=== PATIENT | male | born 1945 | race Caucasian/White ===

== ENCOUNTER 2017-03-25 13:26 | Emergency (ER) | payer MEDICARE, BC ==
[2017-03-25 13:39] VITALS: BP 151/64
--- NOTE | 2017-03-25 14:00 | EDM.PDOC ---
ED HPI GENERAL MEDICAL PROBLEM - General Chief Complaint: General Time Seen by Provider: 03/25/17 13:40 Source of Information: Reports: Patient History Limitations: Reports: No Limitations - History of Present Illness INITIAL COMMENTS - FREE TEXT/NARRATIVE: According to patient he has been having pain redness and swelling over the lateral aspect of the left ankle for past 1 wk now. The redness has been slowly spreading and painful. No open wound or discharge. Also he is noticing swelling of both lower legs now. No fever or chills. No shortness of breath or wheezing. Also he has stage 2 renal disease and has chronic back pain wants to have BMP done today, to make sure the back pain is not from his kidneys. Duration: Week(s): (1) Location: Reports: Lower Extremity, Right Quality: Reports: Ache Severity: Moderate Improves with: Reports: None Worsens with: Reports: None Associated Symptoms: Denies: Confusion, Chest Pain, Cough, Fever/Chills, Nausea/ Vomiting, Shortness of Breath, Syncope Left Ankle Pain Score (Numeric/FACES): 7 Right Lower Ankle Pain Score (Numeric/FACES): 7 - Related Data Allergies Allergy/AdvReac Type Severity Reaction Status Date / Time No Known Allergies Allergy Verified 07/10/16 12:01 Home Meds: Home Meds Aspirin [Halfprin] 81 mg PO DAILY 07/10/16 [History] Calcium Citrate/Vitamin D3 [Calcium Citrate + D] 1 tab PO DAILY 07/10/16 [ History] Cetirizine [ZyrTEC] 10 mg pe PO DAILY 07/10/16 [History] Doxazosin Mesylate [Cardura] 8 mg PO DAILY 07/10/16 [History] Doxazosin [Cardura] 2 mg PO DAILY 07/10/16 [History] Febuxostat [Uloric] 40 mg PO DAILY 07/10/16 [History] Ferrous Sulfate 325 mg PO DAILY 07/10/16 [History] Furosemide [Lasix] 40 mg PO DAILY 07/10/16 [History] Gabapentin [Neurontin] 100 mg PO DAILY 07/10/16 [History] Methylcellulose (with Sugar) [Citrucel] 454 gm PO DAILY 07/10/16 [History] Omeprazole 20 mg PO DAILY 07/10/16 [History] Sildenafil Citrate [Viagra] 25 mg PO DAILY 07/10/16 [History] Simvastatin [Zocor] 20 mg PO DAILY 07/10/16 [History] Ubidecarenone [Co Q-10] 200 mg PO DAILY 07/10/16 [History] amLODIPine Besylate [Amlodipine Besylate] 10 mg PO DAILY 07/10/16 [History] glipiZIDE [Glucotrol XL] 2.5 mg PO BID 07/10/16 [History] hydrALAZINE [Apresoline] 50 mg PO DAILY 07/10/16 [History] traMADol [Ultram] 50 mg PO TID 07/10/16 [History] Past Medical History HEENT History: Reports: Impaired Vision Cardiovascular History: Reports: Heart Failure, High Cholesterol, Hypertension, CT, Prior Cardiac Arrest, Other (See Below) Other Cardiovascular History: hyperkalemia Genitourinary History: Reports: Renal Disease, Other (See Below) Other Genitourinary History: Blood work has been high and has hx diabetes Musculoskeletal History: Reports: Back Pain, Chronic, Gout Endocrine/Metabolic History: Reports: Diabetes, Type II Hematologic History: Reports: Anemia - Infectious Disease History Infectious Disease History: Reports: Chicken Pox - Past Surgical History Cardiovascular Surgical History: Reports: None, Coronary Artery Bypass, Percutaneous Transluminal Angioplasty Social & Family History - Family History Family Medical History: Noncontributory - Tobacco Use Smoking Status *Q: Unknown Ever Smoked - Caffeine Use Caffeine Use: Reports: None ED ROS GENERAL - Review of Systems Review Of Systems: See Below Constitutional: Denies: Fever, Chills HEENT: Denies: Rhinitis, Throat Pain, Throat Swelling, Vision Change Respiratory: Denies: Cough, Sputum Cardiovascular: Denies: Chest Pain, Lightheadedness, Syncope GI/Abdominal: Denies: Nausea, Vomiting : Denies: Dysuria, Flank Pain Musculoskeletal: Denies: Joint Pain, Joint Swelling Skin: Reports: Erythema Neurological: Denies: Syncope, Tingling ED EXAM, GENERAL - Physical Exam Exam: See Below Exam Limited By: No Limitations General Appearance: Alert, WD/WN, No Apparent Distress Eye Exam: Bilateral Eye: EOMI, PERRL Ears: Normal External Exam, Normal Canal, Hearing Grossly Normal, Normal TMs Ear Exam: Bilateral Ear: Auricle Normal, Canal Normal, TM normal Nose: Normal Inspection, Normal Mucosa, No Blood Throat/Mouth: Normal Inspection, Normal Lips, Normal Teeth, Normal Gums, Normal Oropharynx, Normal Voice, No Airway Compromise Head: Atraumatic, Normocephalic Neck: Normal Inspection, Supple, Non-Tender, Full Range of Motion Respiratory/Chest: No Respiratory Distress, Lungs Clear, Normal Breath Sounds, No Accessory Muscle Use, Chest Non-Tender Cardiovascular: Normal Peripheral Pulses, Regular Rate, Rhythm, No Edema, No Gallop, No JVD, No Murmur, No Rub Peripheral Pulses: 2+: Radial (L), Radial (R) Extremities: Pedal Edema (Pitting type around both ankle), Redness (LAteral aspect of the right ankle. Tender over the rash. There is pitting edema around right ankle.) Course - Vital Signs Text/Narrative:: CBC appears normal. His BMP shows potassium of 3.9. His BUN is 37 and his creat is 2.05. His elevated creat could be from chronic renal insufficiency. I have started him on augmentin for the cellulitis of the right ankle. Advised elevation of the right leg. Warm compresses. Regarding his back pain, he does have chronic back pain and on tramadol. His BMP appears stable.Pt is not sure of his last BMP results and he had it done in [place] and has report at home. I have given copy of the results here to compare. If elevated needs to call us. Otherwise I have advised to take his lasix 40mg BID( around 6 am and 4 PM) Last Recorded V/S: Last Vital Signs Temp 97.8 F 03/25/17 13:38 Pulse 76 03/25/17 13:38 Resp 20 03/25/17 13:38 BP 151/64 H 03/25/17 13:38 Pulse Ox 96 03/25/17 13:38 - Orders/Labs/Meds Labs: Laboratory Tests 03/25/17 03/25/17 Range/Units 13:55 13:55 WBC 7.7 D (4.0-11.0) K/uL RBC 3.24 L (4.50-6.50) M/uL Hgb 10.4 L (13.0-18.0) g/dL Hct 30.7 L (40.0-54.0) % MCV 95 (76-96) fL MCH 32.1 H (27.0-32.0) pg MCHC 33.9 (31.0-35.0) g/dL RDW 14.4 (11.0-16.0) % Plt Count 249 D (150-400) K/uL MPV 8.8 (6.0-10.0) fL Neut % (Auto) 68.6 (45.0-70.0) % Lymph % (Auto) 16.0 L (20.0-40.0) % Randolph % (Auto) 12.6 H (3.0-10.0) % Eos % (Auto) 1.9 (1.0-5.0) % Baso % (Auto) 0.9 H (0.0-0.5) % Neut # (Auto) 5.28 (2.00-7.50) K/uL Lymph # (Auto) 1.23 L (1.50-4.00) K/uL Randolph # (Auto) 0.97 H (0.20-0.80) K/uL Eos # (Auto) 0.15 (0.04-0.40) K/uL Baso # (Auto) 0.07 (0.02-0.10) K/uL Sodium 136 (136-145) mmol/L Potassium 3.9 (3.5-5.1) mmol/L Chloride 101 (98-107) mmol/L Carbon Dioxide 25.2 (21.0-32.0) mmol/L Anion Gap 13.7 (5.0-15.0) mmol/L BUN 37 H D (8-26) mg/dL Creatinine 2.05 H D (0.70-1.30) mg/dL Est Cr Clr Drug Dosing 3.13 mL/min Estimated GFR (MDRD) 32 L (>60) MLS/MIN BUN/Creatinine Ratio 18.0 (6-25) Glucose 139 H D (74-100) mg/dL Calcium 8.7 (8.5-10.1) mg/dL Departure - Departure Time of Disposition: 15:10 Disposition: Home, Self-Care 01 Condition: fair Clinical Impression: Cellulitis of right ankle, Back pain - Discharge Information Instructions: Diabetes and Foot Care, Cellulitis, Adult, Amoxicillin; Clavulanic Acid oral suspension Referrals: Amado Bravo MD [Primary Care Provider] - Forms: ED Department Discharge Care Plan Goals: Take Augmentin twice a day until gone. - Problem List & Annotations (1) Back pain SNOMED Code(s): 223499024 Code(s): M54.9 - DORSALGIA, UNSPECIFIED Status: Acute Current Visit: Yes (2) Cellulitis of right ankle SNOMED Code(s): 33514154 Code(s): L03.115 - CELLULITIS OF RIGHT LOWER LIMB Status: Acute Current Visit: Yes - Assessment/Plan Assessment:: Cellulitis of the right ankle Chronic Back pain. with CRF Plan: CBC appears normal. His BMP shows potassium of 3.9. His BUN is 37 and his creat is 2.05. His elevated creat could be from chronic renal insufficiency. I have started him on augmentin for the cellulitis of the right ankle. Advised elevation of the right leg. Warm compresses. Regarding his back pain, he does have chronic back pain and on tramadol. His BMP appears stable.Pt is not sure of his last BMP results and he had it done in [place] and has report at home. I have given copy of the results here to compare. If elevated needs to call us. Otherwise I have advised to take his lasix 40mg BID( around 6 am and 4 PM)
== END 2017-03-25 14:45 | disposition home or self-care (01) ==
LOC: LB.ED 13:26
DX: L03.115 Cellulitis of right lower limb (principal); M54.9 Dorsalgia, unspecified; I11.0 Hypertensive heart disease with heart failure; I50.9 Heart failure, unspecified; I25.2 Old myocardial infarction; E78.00 Pure hypercholesterolemia, unspecified; E11.9 Type 2 diabetes mellitus without complications; D64.9 Anemia, unspecified; Z95.1 Presence of aortocoronary bypass graft; Z79.82 Long term (current) use of aspirin; Z79.899 Other long term (current) drug therapy; M10.9 Gout, unspecified
CPT/HCPCS: 36415; 80048; 85025; 99283

== ENCOUNTER 2017-05-08 19:18 | Emergency (ER) | payer MEDICARE, BC ==
[2017-05-08 20:23] VITALS: BP 139/66
--- NOTE | 2017-05-11 11:46 | EDM.PDOC ---
ED HPI GENERAL MEDICAL PROBLEM - General Chief Complaint: Laceration Stated Complaint: laceration Time Seen by Provider: 05/08/17 19:30 Source of Information: Reports: Patient History Limitations: Reports: No Limitations - History of Present Illness INITIAL COMMENTS - FREE TEXT/NARRATIVE: This is a 71yo M here for a laceration injury of the right index finger proximally. Patient was moving his trailer awning and it fell and caught his hand. Patient has full range of movement and motion but does take blood thinners but is no longer bleeding. Patient denies any other injuries. Onset: Sudden Location: Reports: Upper Extremity, Right Improves with: Reports: None Worsens with: Reports: None - Related Data Allergies Allergy/AdvReac Type Severity Reaction Status Date / Time No Known Allergies Allergy Verified 05/08/17 20:42 Home Meds: Home Meds Aspirin [Halfprin] 81 mg PO DAILY 07/10/16 [History] Calcium Citrate/Vitamin D3 [Calcium Citrate + D] 1 tab PO DAILY 07/10/16 [ History] Cetirizine [ZyrTEC] 10 mg pe PO DAILY 07/10/16 [History] Doxazosin Mesylate [Cardura] 8 mg PO DAILY 07/10/16 [History] Febuxostat [Uloric] 80 mg PO DAILY 07/10/16 [History] Furosemide [Lasix] 80 mg PO DAILY 07/10/16 [History] Gabapentin [Neurontin] 100 mg PO DAILY 07/10/16 [History] Omeprazole 20 mg PO DAILY 07/10/16 [History] Sildenafil Citrate [Viagra] 25 mg PO DAILY 07/10/16 [History] Simvastatin [Zocor] 20 mg PO DAILY 07/10/16 [History] Ubidecarenone [Co Q-10] 200 mg PO DAILY 07/10/16 [History] amLODIPine Besylate [Amlodipine Besylate] 10 mg PO DAILY 07/10/16 [History] glipiZIDE [Glucotrol XL] 2.5 mg PO DAILY 07/10/16 [History] hydrALAZINE [Apresoline] 100 mg PO TID 07/10/16 [History] traMADol [Ultram] 50 mg PO TID PRN 07/10/16 [History] Acetaminophen [Tylenol Extra Strength] 1,000 mg PO TID 03/25/17 [History] Calcium Citrate/Vitamin D3 [Citracal + D Maximum [place]] 1 tab PO BID 03/25/17 [ History] Ferrous Sulfate [Iron] 325 mg PO DAILY 03/25/17 [History] Fish Oil/[place]-3 Fatty Acids [Fish Oil 1,000 MG] 1,000 mg PO DAILY 03/25/17 [ History] Fluorometholone [Fluorometholone 0.1% Ophth Susp] 1 drop OP Q6HR 03/25/17 [ History] Hydrocodone/Acetaminophen [Hydrocodon-Acetaminoph 2.5-325] 5 - 325 mg PO Q6HR [History] Polyethylene Glycol 3350 [MiraLAX] 17 gm PO DAILY 03/25/17 [History] Polyethylene Glycol 3350 [MiraLAX] 17 gm PO DAILY 03/25/17 [History] Valsartan 320 mg PO DAILY 03/25/17 [History] Warfarin [Coumadin] 5 mg PO DAILY 03/25/17 [History] Past Medical History HEENT History: Reports: Impaired Vision Cardiovascular History: Reports: Heart Failure, High Cholesterol, Hypertension, [place], Prior Cardiac Arrest, Other (See Below) Other Cardiovascular History: hyperkalemia Respiratory History: Reports: Sleep Apnea Gastrointestinal History: Reports: Diverticulosis, GERD, Other (See Below) Other Gastrointestinal History: lactose intolerance Genitourinary History: Reports: Renal Disease, Other (See Below) Other Genitourinary History: Blood work has been high and has hx diabetes Musculoskeletal History: Reports: Back Pain, Chronic, Gout Neurological History: Reports: Neuropathy, Diabetic, Neuropathy, Peripheral, Other (See Below) Other Neuro History: paresthesia Endocrine/Metabolic History: Reports: Diabetes, Type II Hematologic History: Reports: Anemia Other Hematologic History: antiphosholipic , prothombin gene mutation, antibody syndrome, cannot take ibuprophin - Infectious Disease History Infectious Disease History: Reports: Chicken Pox - Past Surgical History Cardiovascular Surgical History: Reports: None, Coronary Artery Bypass, Percutaneous Transluminal Angioplasty GI Surgical History: Reports: Colonoscopy Social & Family History - Family History Family Medical History: Noncontributory - Tobacco Use Smoking Status *Q: Never Smoker Used Tobacco, but Quit: Yes Month Tobacco Last Used: 2 Second Hand Smoke Exposure: No - Caffeine Use Caffeine Use: Reports: Coffee - Alcohol Use Days Per Week of Alcohol Use: 4 Number of Drinks Per Day: 4 Total Drinks Per Week: 16 - Recreational Drug Use Recreational Drug Use: No ED ROS GENERAL - Review of Systems Review Of Systems: ROS reveals no pertinent complaints other than HPI. ED EXAM, SKIN/RASH Exam: See Below Exam Limited By: No Limitations General Appearance: Alert, WD/WN, No Apparent Distress Respiratory/Chest: No Respiratory Distress Cardiovascular: Normal Peripheral Pulses Extremities: Other (laceration of the right index finger dorsum proximally jagged about 3.8cm in length with a 90' angle) Neurological: Alert, Oriented, Normal Reflexes, No Motor/Sensory Deficits ED SKIN PROCEDURES - Laceration/Wound Repair Right Upper Dorsal Hand Lac/Wound length In cm: 3.8 Appearance: Stellate, Irregular, Clean Distal NVT: Neuro & Vascular Intact, No Tendon Injury Anesthetic Type: Local Local Anesthesia - Lidocaine (Xylocaine): 1% Plain Local Anesthetic Volume: 5cc Skin Prep: Providone-Iodine (Betadine) Exploration/Debridement/Repair: Wound Explored, Explored to Base, Multiple Flaps Aligned Closed with: Sutures Suture Size: 4-0 # of Sutures: 9 Tetanus Status Addressed: Yes Complications: No Course - Vital Signs Last Recorded V/S: Last Vital Signs Temp 37.7 C 05/08/17 19:20 Pulse 86 05/08/17 19:20 Resp 16 05/08/17 19:20 BP 139/66 05/08/17 19:20 Pulse Ox 97 05/08/17 19:20 - Orders/Labs/Meds Meds: Medications Discontinued Medications Generic Name Dose Route Start Last Admin Trade Name Diamante PRN Reason Stop Dose Admin Lidocaine HCl 5 ml 05/08/17 19:35 Xylocaine-Mpf 1% .ROUTE 05/08/17 19:36 .STK-MED ONE Departure - Departure Time of Disposition: 20:10 Disposition: Home, Self-Care 01 Condition: Good Clinical Impression: Laceration - Discharge Information Instructions: Wound Infection, [id number], Laceration Care, Adult, Easy-to- Read Referrals: PCP,None [Primary Care Provider] - Forms: ED Department Discharge Additional Instructions: Keep affected clean and dry, and leave applied dressing in place for next 24 hours. After that, remove dressing, apply thin strip of antibiotic ointment, cover with non-adherent dressing and wrap with gauze, securing with tape for next 2-3 days, then may leave open to air. Follow up in clinic for suture removal in 10 days. Be sure to watch for signs and symptoms of infection including increased redness, increased swelling, increased pain or tenderness to touch, foul drainage and/or fever present. Should any of these symptoms occur, return to be seen for further treatment. Call with any questions.
== END 2017-05-08 19:45 | disposition home or self-care (01) ==
LOC: LB.ED 19:18
DX: S61.220A Laceration with foreign body of right index finger without damage to nail, initial encounter (principal); W20.8XXA Other cause of strike by thrown, projected or falling object, initial encounter; Z79.01 Long term (current) use of anticoagulants; Z79.899 Other long term (current) drug therapy; I10 Essential (primary) hypertension; I50.9 Heart failure, unspecified; E78.00 Pure hypercholesterolemia, unspecified; I25.2 Old myocardial infarction; G47.33 Obstructive sleep apnea (adult) (pediatric); K57.90 Diverticulosis of intestine, part unspecified, without perforation or abscess without bleeding; E11.9 Type 2 diabetes mellitus without complications; D64.9 Anemia, unspecified; Z79.82 Long term (current) use of aspirin; Z98.890 Other specified postprocedural states
CPT/HCPCS: 12002; 99282; 99282-25

== ENCOUNTER 2018-06-12 07:45 | Emergency (ER) | payer MEDICARE, BC ==
[2018-06-12 08:28] VITALS: BP 167/89
[2018-06-12] MEDS ORDERED: cefTRIAXone 1 GM Vial ONE (08:49)
[2018-06-12] MEDS: cefTRIAXone 1 GM Vial IM ONE (09:00)
--- NOTE | 2018-06-12 11:02 | EDM.PDOC ---
ED HPI GENERAL MEDICAL PROBLEM - General Chief Complaint: General Stated Complaint: DIABETIC, RASH ON FEET Time Seen by Provider: 06/12/18 08:20 Source of Information: Reports: Patient History Limitations: Reports: No Limitations - History of Present Illness INITIAL COMMENTS - FREE TEXT/NARRATIVE: This is a 72yo M here for a new rash that has been present for about 1 month. He denies pruritis or pain but states it is tender at times to touch. He notices the small lesions of the feet with blistering and clear fluid. There is also a spot (blister like) on the inferior scrotum that is secreting clear fluid. Onset: Gradual Duration: Week(s): (4) Severity: Mild Improves with: Reports: None Worsens with: Reports: None Treatments DRENCHER: Reports: Other (see below) Other Treatments DRENCHER: antibiotic ointment - Related Data Allergies Allergy/AdvReac Type Severity Reaction Status Date / Time No Known Allergies Allergy Verified 05/08/17 20:42 Home Meds: Home Meds Aspirin [Halfprin] 81 mg PO DAILY 07/10/16 [History] Calcium Citrate/Vitamin D3 [Calcium Citrate + D] 1 tab PO DAILY 07/10/16 [ History] Cetirizine [ZyrTEC] 10 mg pe PO DAILY 07/10/16 [History] Doxazosin Mesylate [Cardura] 8 mg PO DAILY 07/10/16 [History] Febuxostat [Uloric] 80 mg PO DAILY 07/10/16 [History] Furosemide [Lasix] 80 mg PO DAILY 07/10/16 [History] Gabapentin [Neurontin] 100 mg PO DAILY 07/10/16 [History] Omeprazole 20 mg PO DAILY 07/10/16 [History] Sildenafil Citrate [Viagra] 25 mg PO DAILY 07/10/16 [History] Simvastatin [Zocor] 20 mg PO DAILY 07/10/16 [History] Ubidecarenone [Co Q-10] 200 mg PO DAILY 07/10/16 [History] amLODIPine Besylate [Amlodipine Besylate] 10 mg PO DAILY 07/10/16 [History] glipiZIDE [Glucotrol XL] 2.5 mg PO DAILY 07/10/16 [History] hydrALAZINE [Apresoline] 100 mg PO TID 07/10/16 [History] traMADol [Ultram] 50 mg PO TID PRN 07/10/16 [History] Acetaminophen [Tylenol Extra Strength] 1,000 mg PO TID 03/25/17 [History] Calcium Citrate/Vitamin D3 [Citracal + D Maximum Caplet] 1 tab PO BID 03/25/17 [ History] Ferrous Sulfate [Iron] 325 mg PO DAILY 03/25/17 [History] Fish Oil/Brainerd-3 Fatty Acids [Fish Oil 1,000 MG] 1,000 mg PO DAILY 03/25/17 [ History] Fluorometholone [Fluorometholone 0.1% Ophth Susp] 1 drop OP Q6HR 03/25/17 [ History] Hydrocodone/Acetaminophen [Hydrocodon-Acetaminoph 2.5-325] 5 - 325 mg PO Q6HR [History] Polyethylene Glycol 3350 [MiraLAX] 17 gm PO DAILY 03/25/17 [History] Polyethylene Glycol 3350 [MiraLAX] 17 gm PO DAILY 03/25/17 [History] Valsartan 320 mg PO DAILY 03/25/17 [History] Warfarin [Coumadin] 5 mg PO DAILY 03/25/17 [History] Amoxicillin/Potassium Clav [Augmentin 875-125 Tablet] 1 each PO BID #20 tablet 06/12/18 [Rx] Bacitracin 3.5 gm OP Q6HR 10 Days #1 oint...g. 06/12/18 [Rx] Past Medical History HEENT History: Reports: Impaired Vision Cardiovascular History: Reports: Heart Failure, High Cholesterol, Hypertension, [place], Prior Cardiac Arrest, Other (See Below) Other Cardiovascular History: hyperkalemia Respiratory History: Reports: Sleep Apnea Gastrointestinal History: Reports: Diverticulosis, GERD, Other (See Below) Other Gastrointestinal History: lactose intolerance Genitourinary History: Reports: Renal Disease, Other (See Below) Other Genitourinary History: Blood work has been high and has hx diabetes Musculoskeletal History: Reports: Back Pain, Chronic, Gout Neurological History: Reports: Neuropathy, Diabetic, Neuropathy, Peripheral, Other (See Below) Other Neuro History: paresthesia Endocrine/Metabolic History: Reports: Diabetes, Type II Hematologic History: Reports: Anemia Other Hematologic History: antiphosholipic , prothombin gene mutation, antibody syndrome, cannot take ibuprophin - Infectious Disease History Infectious Disease History: Reports: Chicken Pox - Past Surgical History Cardiovascular Surgical History: Reports: None, Coronary Artery Bypass, Percutaneous Transluminal Angioplasty GI Surgical History: Reports: Colonoscopy Social & Family History - Family History Family Medical History: Noncontributory - Caffeine Use Caffeine Use: Reports: Coffee ED ROS GENERAL - Review of Systems Review Of Systems: ROS reveals no pertinent complaints other than HPI. ED EXAM, GENERAL - Physical Exam Exam: See Below Exam Limited By: No Limitations General Appearance: Alert, WD/WN, No Apparent Distress Ears: Normal External Exam Ear Exam: Right Ear: TM normal Nose: Normal Inspection Throat/Mouth: Normal Inspection, Normal Lips, Normal Teeth, Normal Gums, Normal Oropharynx, Normal Voice, No Airway Compromise Head: Atraumatic, Normocephalic Neck: Normal Inspection Respiratory/Chest: No Respiratory Distress, Lungs Clear, Normal Breath Sounds Cardiovascular: Normal Peripheral Pulses, Regular Rate, Rhythm GI/Abdominal: Normal Bowel Sounds Extremities: Normal Inspection Skin Exam: Other (vesicular lesions b/l dorsum of feet 4-5 each around 2-5mm, one on right foot inferior to right malleolus 3cm in diameter, the same 3cm lesion on the scrotum) Course - Vital Signs Last Recorded V/S: Last Vital Signs Temp 37.2 C 06/12/18 08:22 Pulse 88 06/12/18 08:22 Resp 16 06/12/18 08:22 BP 167/89 H 06/12/18 08:22 Pulse Ox 96 06/12/18 08:22 - Orders/Labs/Meds Orders: Active Orders 24 hr Category Date Time Status JONAH W/RFX TO ALL IF POSITIVE Urgent Lab 06/12/18 08:50 Received CULTURE WOUND + SMEAR [RM] Stat Lab 06/12/18 09:18 Received RAPID PLASMA REAGIN, QUANT Routine Lab 06/12/18 08:00 Received VIRAL CULTURE, GENERAL Urgent Lab 06/12/18 09:17 Received Labs: Laboratory Tests 06/12/18 06/12/18 06/12/18 Range/Units 08:50 08:50 08:50 WBC 7.9 (4.0-11.0) K/uL RBC 3.56 L (4.50-6.50) M/uL Hgb 11.7 L (13.0-18.0) g/dL Hct 34.3 L (40.0-54.0) % MCV 96 (76-96) fL MCH 32.9 H (27.0-32.0) pg MCHC 34.1 (31.0-35.0) g/dL RDW 15.0 (11.0-16.0) % Plt Count 221 (150-400) K/uL MPV 9.1 (6.0-10.0) fL Neut % (Auto) 68.3 (45.0-70.0) % Lymph % (Auto) 16.1 L (20.0-40.0) % Pitt % (Auto) 10.8 H (3.0-10.0) % Eos % (Auto) 3.9 (1.0-5.0) % Baso % (Auto) 0.9 H (0.0-0.5) % Neut # (Auto) 5.42 (2.00-7.50) K/uL Lymph # (Auto) 1.28 L (1.50-4.00) K/uL Pitt # (Auto) 0.86 H (0.20-0.80) K/uL Eos # (Auto) 0.31 (0.04-0.40) K/uL Baso # (Auto) 0.07 (0.02-0.10) K/uL ESR 50 H (0-20) mm/hr Sodium (136-145) mmol/L Potassium (3.5-5.1) mmol/L Chloride (98-107) mmol/L Carbon Dioxide (21.0-32.0) mmol/L Anion Gap (5.0-15.0) mmol/L BUN (8-26) mg/dL Creatinine (0.70-1.30) mg/dL Est Cr Clr Drug Dosing mL/min Estimated GFR (MDRD) (>60) MLS/MIN BUN/Creatinine Ratio (6-25) Glucose (74-100) mg/dL Calcium (8.5-10.1) mg/dL Total Bilirubin (0.0-1.0) mg/dL AST (15-37) U/L ALT (12-78) U/L Alkaline Phosphatase (46-116) U/L C-Reactive Protein 11.9 H (0.0-3.0) mg/L Total Protein (6.4-8.2) g/dL Albumin (3.4-5.0) g/dL Globulin (2.2-4.2) g/dL Albumin/Globulin Ratio (0.8-2.0) TSH, Ultra Sensitive (0.358-3.740) uIU/mL 06/12/18 Range/Units 08:50 WBC (4.0-11.0) K/uL RBC (4.50-6.50) M/uL Hgb (13.0-18.0) g/dL Hct (40.0-54.0) % MCV (76-96) fL MCH (27.0-32.0) pg MCHC (31.0-35.0) g/dL RDW (11.0-16.0) % Plt Count (150-400) K/uL MPV (6.0-10.0) fL Neut % (Auto) (45.0-70.0) % Lymph % (Auto) (20.0-40.0) % Pitt % (Auto) (3.0-10.0) % Eos % (Auto) (1.0-5.0) % Baso % (Auto) (0.0-0.5) % Neut # (Auto) (2.00-7.50) K/uL Lymph # (Auto) (1.50-4.00) K/uL Pitt # (Auto) (0.20-0.80) K/uL Eos # (Auto) (0.04-0.40) K/uL Baso # (Auto) (0.02-0.10) K/uL ESR (0-20) mm/hr Sodium 134 L (136-145) mmol/L Potassium 3.7 (3.5-5.1) mmol/L Chloride 98 (98-107) mmol/L Carbon Dioxide 23.9 (21.0-32.0) mmol/L Anion Gap 15.8 H (5.0-15.0) mmol/L BUN 51 H* D (8-26) mg/dL Creatinine 2.24 H D (0.70-1.30) mg/dL Est Cr Clr Drug Dosing 30.33 mL/min Estimated GFR (MDRD) 29 L (>60) MLS/MIN BUN/Creatinine Ratio 22.8 (6-25) Glucose 120 H (74-100) mg/dL Calcium 8.8 (8.5-10.1) mg/dL Total Bilirubin 0.4 D (0.0-1.0) mg/dL AST 40 H (15-37) U/L ALT 58 (12-78) U/L Alkaline Phosphatase 84 (46-116) U/L C-Reactive Protein (0.0-3.0) mg/L Total Protein 8.5 H (6.4-8.2) g/dL Albumin 4.1 (3.4-5.0) g/dL Globulin 4.4 H (2.2-4.2) g/dL Albumin/Globulin Ratio 0.9 (0.8-2.0) TSH, Ultra Sensitive 3.240 (0.358-3.740) uIU/mL Meds: Medications Discontinued Medications Generic Name Dose Route Start Last Admin Trade Name Arminq PRN Reason Stop Dose Admin Ceftriaxone Sodium 1 gm 06/12/18 08:42 06/12/18 09:00 Rocephin IM 06/12/18 08:43 1 gm ONETIME ONE Administration Ceftriaxone Sodium Confirm 06/12/18 08:49 Rocephin Administered 06/12/18 08:50 Dose 1 gm .ROUTE .STK-MED ONE Departure - Departure Time of Disposition: 09:00 Disposition: Home, Self-Care 01 Condition: Good Clinical Impression: Rash, vesicular, Skin bulla - Discharge Information Prescriptions: Bacitracin 3.5 gm OP Q6HR 10 Days #1 oint...g. Amoxicillin/Potassium Clav [Augmentin 875-125 Tablet] 1 each PO BID #20 tablet Instructions: Amoxicillin; Clavulanic Acid tablets, Ceftriaxone injection, Bacitracin skin ointment, Probiotics Referrals: PCP,None [Primary Care Provider] - Forms: ED Department Discharge Additional Instructions: Leave the sores that are open, open to dry out. Take the antibiotic (Augmentin) two times a day with a meal, if you get diarrhea, you need to be seen to make sure you do not get C-Diff. If you are taking the probiotic 3 times a day and eating yogurt, you should not develop the diarrhea, but is so return to the clinic. If you need the results, they should be back by the end of this week, you can call medical records and have them print it all out for you. The results for the JONAH will take until next week, if you do not hear from Dr. Bravo' s nurse by the end of next week, please call the clinic and inquire [phone]. Called on phone to discuss hyponatremia and renal dysfunction. He has recently had labs done in [place] with Na of 132 and BUN/CR of 50/1.9 EGFR 32. Discussed continued f/u with Supervisor Adult Education and management. Discussed wound care and management of bulla and vesicles and close monitoring and f/u if there is no resolution. - My Orders Last 24 Hours: My Active Orders 06/12/18 08:00 RAPID PLASMA REAGIN, QUANT Routine 06/12/18 08:50 JONAH W/RFX TO ALL IF POSITIVE Urgent 06/12/18 09:17 VIRAL CULTURE, GENERAL Urgent 06/12/18 09:18 CULTURE WOUND + SMEAR [RM] Stat - Assessment/Plan Last 24 Hours: My Active Orders 06/12/18 08:00 RAPID PLASMA REAGIN, QUANT Routine 06/12/18 08:50 JONAH W/RFX TO ALL IF POSITIVE Urgent 06/12/18 09:17 VIRAL CULTURE, GENERAL Urgent 06/12/18 09:18 CULTURE WOUND + SMEAR [RM] Stat
[2018-06-15 13:11] LABS: ANA DIRECT Negative (Negative)
== END 2018-06-12 08:58 | disposition home or self-care (01) ==
LOC: LB.ED 07:45
DX: S90.822A Blister (nonthermal), left foot, initial encounter (principal); S90.821A Blister (nonthermal), right foot, initial encounter; N50.89 Other specified disorders of the male genital organs; R21 Rash and other nonspecific skin eruption; I11.0 Hypertensive heart disease with heart failure; I50.9 Heart failure, unspecified; E11.40 Type 2 diabetes mellitus with diabetic neuropathy, unspecified; Z79.82 Long term (current) use of aspirin; Z79.01 Long term (current) use of anticoagulants; Z79.899 Other long term (current) drug therapy
CPT/HCPCS: 36415; 80053; 84443; 85025; 85651; 86038; 86140; 86593; 87070; 87186; 87205; 87252; 96372; 99283-25; J0696

== ENCOUNTER 2018-06-20 08:16 | Emergency (ER) | payer MEDICARE, BC ==
[2018-06-20 09:28] VITALS: BP 176/98
--- NOTE | 2018-06-20 09:33 | EDM.PDOC ---
ED HPI GENERAL MEDICAL PROBLEM - General Stated Complaint: BLEEDING RASH Time Seen by Provider: 06/20/18 08:20 Source of Information: Reports: Patient History Limitations: Reports: No Limitations - History of Present Illness INITIAL COMMENTS - FREE TEXT/NARRATIVE: Pt is a 72 year old male with CAD with CHF, CRF and Diabetic.According to patient he has been having painless rashes over the feet for past 1 month now. The rash have been bright red and slightly itchy over the feet. It does get blister and oozes and clear up.No fever or chills. No myalgia. He has noted some similar lesions 1-2 in number over the medial aspect of the legs. Pt was seen about 1 wk ago in the emergency room, he was treated for infection, with Augmentin, also he had received one dose of kenalog 40mg IM. Pt was advised to apply bactiracin on the rash. Pt called on 06/15/18 as rash had not cleared and he was started on cipro 500mg BID which he is presently on. Pt is here as the rashes have not improved and has noted some new lesion. No fever, chills. Feels tired, no myalgia or joint pain. - Related Data Allergies Allergy/AdvReac Type Severity Reaction Status Date / Time No Known Allergies Allergy Verified 05/08/17 20:42 Home Meds: Home Meds Aspirin [Halfprin] 81 mg PO DAILY 07/10/16 [History] Calcium Citrate/Vitamin D3 [Calcium Citrate + D] 1 tab PO DAILY 07/10/16 [ History] Cetirizine [ZyrTEC] 10 mg pe PO DAILY 07/10/16 [History] Doxazosin Mesylate [Cardura] 8 mg PO DAILY 07/10/16 [History] Febuxostat [Uloric] 80 mg PO DAILY 07/10/16 [History] Furosemide [Lasix] 80 mg PO DAILY 07/10/16 [History] Gabapentin [Neurontin] 100 mg PO DAILY 07/10/16 [History] Omeprazole 20 mg PO DAILY 07/10/16 [History] Sildenafil Citrate [Viagra] 25 mg PO DAILY 07/10/16 [History] Simvastatin [Zocor] 20 mg PO DAILY 07/10/16 [History] Ubidecarenone [Co Q-10] 200 mg PO DAILY 07/10/16 [History] amLODIPine Besylate [Amlodipine Besylate] 10 mg PO DAILY 07/10/16 [History] glipiZIDE [Glucotrol XL] 2.5 mg PO DAILY 07/10/16 [History] hydrALAZINE [Apresoline] 100 mg PO TID 07/10/16 [History] traMADol [Ultram] 50 mg PO TID PRN 07/10/16 [History] Acetaminophen [Tylenol Extra Strength] 1,000 mg PO TID 03/25/17 [History] Calcium Citrate/Vitamin D3 [Citracal + D Maximum Caplet] 1 tab PO BID 03/25/17 [ History] Ferrous Sulfate [Iron] 325 mg PO DAILY 03/25/17 [History] Fish Oil/Verona-3 Fatty Acids [Fish Oil 1,000 MG] 1,000 mg PO DAILY 03/25/17 [ History] Fluorometholone [Fluorometholone 0.1% Ophth Susp] 1 drop OP Q6HR 03/25/17 [ History] Hydrocodone/Acetaminophen [Hydrocodon-Acetaminoph 2.5-325] 5 - 325 mg PO Q6HR [History] Polyethylene Glycol 3350 [MiraLAX] 17 gm PO DAILY 03/25/17 [History] Polyethylene Glycol 3350 [MiraLAX] 17 gm PO DAILY 03/25/17 [History] Valsartan 320 mg PO DAILY 03/25/17 [History] Warfarin [Coumadin] 5 mg PO DAILY 03/25/17 [History] Amoxicillin/Potassium Clav [Augmentin 875-125 Tablet] 1 each PO BID #20 tablet 06/12/18 [Rx] Bacitracin 3.5 gm OP Q6HR 10 Days #1 oint...g. 06/12/18 [Rx] Past Medical History HEENT History: Reports: Impaired Vision Cardiovascular History: Reports: Heart Failure, High Cholesterol, Hypertension, VT, Prior Cardiac Arrest, Other (See Below) Other Cardiovascular History: hyperkalemia Respiratory History: Reports: Sleep Apnea Gastrointestinal History: Reports: Diverticulosis, GERD, Other (See Below) Other Gastrointestinal History: lactose intolerance Genitourinary History: Reports: Renal Disease, Other (See Below) Other Genitourinary History: Blood work has been high and has hx diabetes Musculoskeletal History: Reports: Back Pain, Chronic, Gout Neurological History: Reports: Neuropathy, Diabetic, Neuropathy, Peripheral, Other (See Below) Other Neuro History: paresthesia Endocrine/Metabolic History: Reports: Diabetes, Type II Hematologic History: Reports: Anemia Other Hematologic History: antiphosholipic , prothombin gene mutation, antibody syndrome, cannot take ibuprophin - Infectious Disease History Infectious Disease History: Reports: Chicken Pox - Past Surgical History Cardiovascular Surgical History: Reports: None, Coronary Artery Bypass, Percutaneous Transluminal Angioplasty GI Surgical History: Reports: Colonoscopy Social & Family History - Family History Family Medical History: Noncontributory - Caffeine Use Caffeine Use: Reports: Coffee ED ROS GENERAL - Review of Systems Review Of Systems: See Below Constitutional: Denies: Fever, Chills, Malaise, Weakness HEENT: Denies: Rhinitis, Throat Pain, Throat Swelling Respiratory: Denies: Shortness of Breath, Wheezing, Cough, Sputum Cardiovascular: Denies: Chest Pain, Lightheadedness GI/Abdominal: Denies: Abdominal Pain, Nausea, Vomiting : Denies: Flank Pain, Frequency Musculoskeletal: Denies: Joint Pain, Joint Swelling Skin: Reports: Bruising, Rash, Erythema. Denies: Pruritis Neurological: Denies: Confusion, Dizziness, Headache, Pre-Existing Deficit Psychiatric: Denies: Agitation, Anxiety ED EXAM, GENERAL - Physical Exam Exam: See Below Exam Limited By: No Limitations General Appearance: Alert, WD/WN, No Apparent Distress Eye Exam: Bilateral Eye: EOMI, PERRL Ears: Normal External Exam, Normal Canal, Hearing Grossly Normal, Normal TMs Ear Exam: Bilateral Ear: Auricle Normal, Canal Normal, TM normal Nose: Normal Inspection, Normal Mucosa, No Blood Throat/Mouth: Normal Inspection, Normal Lips, Normal Teeth, Normal Gums, Normal Oropharynx, Normal Voice, No Airway Compromise Head: Atraumatic, Normocephalic Neck: Normal Inspection, Supple, Non-Tender, Full Range of Motion Respiratory/Chest: No Respiratory Distress, Lungs Clear, Normal Breath Sounds, No Accessory Muscle Use, Chest Non-Tender Cardiovascular: Normal Peripheral Pulses, Regular Rate, Rhythm, No Edema, No Gallop, No JVD, No Murmur, No Rub GI/Abdominal: Normal Bowel Sounds, Soft, Non-Tender, No Organomegaly, No Distention, No Abnormal Bruit, No Mass (Male) Exam: No Hernia, Normal Prostate, Circumcised, Scrotal Swelling. No: Scrotum Tenderness (L), Scrotum Tenderness (R), Testicular Mass Extremities: Normal Inspection, Normal Range of Motion, Non-Tender, Normal Capillary Refill, No Pedal Edema Neurological: Alert, Oriented Skin Exam: Warm, Intact, Other (Feet: there are scatterred pinkishish purpuric rash over the feet and ankle. very few. Some rashes are clearing up with new one appearing. There is no confluence of rashes. There is no skin drainage seen. Nontender to palpation. ) Course - Vital Signs Text/Narrative:: Pt has had purpuric scattered rashes over the feet and ankle for about 1 month, which is more in the exposed are of the lower extremities. Enrike lesion are non itchy and at time have been vesicular. Pt has been treated with Augmentin followed by louis, which has made no difference. Also had one dose on kenalog Im 10 days ago and has not made any difference. Apparently his JONAH is negative. I did go through patient's medications, He has been on hydralzine 100mgTID for his blood pressure for several years now. Hydralazine is known to cause drug induced lupus. His CBC done today appears normal. His PT and INR are normal . His CMP appears normal, other than his creat of 1.8 which is his baseline. His ESR is elevated at 63 and his CRP is elevated at 18.9. This does make me suspicious for Drug induced lupus. I did contact Dr. Kuhn the vascular surgeon at [facility].I did discuss patient presentation with him. Considering his elevated ESR and CRP with purpuric skin rashes, he does agree with possible Drug induced Lupus cutaneous manifestation. Agree to stop his hydralazine and get him on different blood pressure medication. So will try clonidine 1mg po TID. Also Dr. Kuhn recommended a punch biopsy of the lesion to be sent to [facility] to confirm the diagnosis. If the rash resolves in next few week, this might be related to hydralazine induced lupus. Will have a rheumatology followup in [facility].Pt now during discharge claims that he has Antiphospholipid syndrome. I have discussed the recommendation with patient.Will stop hydralazine. Start him on clonidine 1mg TID for his Blood pressure control. Advised to check his blood pressure and if not controlled will need to followup in clinic for BP management. Advised to apply simple skin moisturizer on the rash. avoid scratching the lesions. Punch biopsy has been done. Wound closed with 2 intermittent sutures, using 4 O ethilon. Wound care discussed .Do not wet the wound for 48 hrs. Keep the foot elevated. Simple antibiotics dressing daily. Suture removal in 1 wk.Will followup with biopsy results. Last Recorded V/S: Last Vital Signs Temp 98.7 F 06/20/18 08:20 Pulse 125 H 06/20/18 08:20 Resp 12 06/20/18 08:20 BP 176/98 H 06/20/18 08:20 Pulse Ox 99 06/20/18 08:20 - Orders/Labs/Meds Labs: Laboratory Tests 06/20/18 06/20/18 06/20/18 Range/Units 08:45 08:45 08:45 WBC 8.9 (4.0-11.0) K/uL RBC 3.32 L (4.50-6.50) M/uL Hgb 10.9 L (13.0-18.0) g/dL Hct 31.5 L (40.0-54.0) % MCV 95 (76-96) fL MCH 32.8 H (27.0-32.0) pg MCHC 34.6 (31.0-35.0) g/dL RDW 14.8 (11.0-16.0) % Plt Count 230 (150-400) K/uL MPV 8.9 (6.0-10.0) fL Neut % (Auto) 71.5 H (45.0-70.0) % Lymph % (Auto) 12.6 L (20.0-40.0) % Gooding % (Auto) 11.7 H (3.0-10.0) % Eos % (Auto) 3.2 (1.0-5.0) % Baso % (Auto) 1.0 H (0.0-0.5) % Neut # (Auto) 6.34 (2.00-7.50) K/uL Lymph # (Auto) 1.12 L (1.50-4.00) K/uL Gooding # (Auto) 1.04 H (0.20-0.80) K/uL Eos # (Auto) 0.28 (0.04-0.40) K/uL Baso # (Auto) 0.09 (0.02-0.10) K/uL ESR (0-20) mm/hr PT 15.2 H (9.0-11.5) sec INR 1.6 (1.0-3.5) Sodium 132 L (136-145) mmol/L Potassium 3.5 (3.5-5.1) mmol/L Chloride 97 L (98-107) mmol/L Carbon Dioxide 22.2 (21.0-32.0) mmol/L Anion Gap 16.3 H (5.0-15.0) mmol/L BUN 46 H (8-26) mg/dL Creatinine 1.87 H (0.70-1.30) mg/dL Est Cr Clr Drug Dosing TNP Estimated GFR (MDRD) 36 L (>60) MLS/MIN BUN/Creatinine Ratio 24.6 (6-25) Glucose 130 H (74-100) mg/dL Calcium 8.6 (8.5-10.1) mg/dL Total Bilirubin 0.8 D (0.0-1.0) mg/dL AST 26 (15-37) U/L ALT 41 (12-78) U/L Alkaline Phosphatase 77 (46-116) U/L C-Reactive Protein (0.0-3.0) mg/L Total Protein 7.8 (6.4-8.2) g/dL Albumin 3.9 (3.4-5.0) g/dL Globulin 3.9 (2.2-4.2) g/dL Albumin/Globulin Ratio 1.0 (0.8-2.0) 06/20/18 06/20/18 Range/Units 08:45 08:45 WBC (4.0-11.0) K/uL RBC (4.50-6.50) M/uL Hgb (13.0-18.0) g/dL Hct (40.0-54.0) % MCV (76-96) fL MCH (27.0-32.0) pg MCHC (31.0-35.0) g/dL RDW (11.0-16.0) % Plt Count (150-400) K/uL MPV (6.0-10.0) fL Neut % (Auto) (45.0-70.0) % Lymph % (Auto) (20.0-40.0) % Gooding % (Auto) (3.0-10.0) % Eos % (Auto) (1.0-5.0) % Baso % (Auto) (0.0-0.5) % Neut # (Auto) (2.00-7.50) K/uL Lymph # (Auto) (1.50-4.00) K/uL Gooding # (Auto) (0.20-0.80) K/uL Eos # (Auto) (0.04-0.40) K/uL Baso # (Auto) (0.02-0.10) K/uL ESR 63 H (0-20) mm/hr PT (9.0-11.5) sec INR (1.0-3.5) Sodium (136-145) mmol/L Potassium (3.5-5.1) mmol/L Chloride (98-107) mmol/L Carbon Dioxide (21.0-32.0) mmol/L Anion Gap (5.0-15.0) mmol/L BUN (8-26) mg/dL Creatinine (0.70-1.30) mg/dL Est Cr Clr Drug Dosing Estimated GFR (MDRD) (>60) MLS/MIN BUN/Creatinine Ratio (6-25) Glucose (74-100) mg/dL Calcium (8.5-10.1) mg/dL Total Bilirubin (0.0-1.0) mg/dL AST (15-37) U/L ALT (12-78) U/L Alkaline Phosphatase (46-116) U/L C-Reactive Protein 18.9 H (0.0-3.0) mg/L Total Protein (6.4-8.2) g/dL Albumin (3.4-5.0) g/dL Globulin (2.2-4.2) g/dL Albumin/Globulin Ratio (0.8-2.0) Departure - Departure Time of Disposition: 11:55 Disposition: Home, Self-Care 01 Condition: Good 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 Hydralazine is known to cause drug induced lupus. His CBC done today appears normal. His PT and INR are normal . His CMP appears normal, other than his creat of 1.8 which is his baseline. His ESR is elevated at 63 and his CRP is elevated at 18.9. This does make me suspicious for Drug induced lupus. I did contact Dr. Kuhn the vascular surgeon at [facility].I did discuss patient presentation with him. Considering his elevated ESR and CRP with purpuric skin rashes, he does agree with possible Drug induced Lupus cutaneous manifestation. Agree to stop his hydralazine and get him on different blood pressure medication. So will try clonidine 1mg po TID. Also Dr. Kuhn recommended a punch biopsy of the lesion to be sent to [facility] to confirm the diagnosis. If the rash resolves in next few week, this might be related to hydralazine induced lupus. Will have a rheumatology followup in [facility].Pt now during discharge claims that he has Antiphospholipid syndrome. I have discussed the recommendation with patient.Will stop hydralazine. Start him on clonidine 1mg TID for his Blood pressure control. Advised to check his blood pressure and if not controlled will need to followup in clinic for BP management. Advised to apply simple skin moisturizer on the rash. avoid scratching the lesions. Punch biopsy has been done. Wound closed with 2 intermittent sutures, using 4 O ethilon. Wound care discussed .Do not wet the wound for 48 hrs. Keep the foot elevated. Simple antibiotics dressing daily. Suture removal in 1 wk.Will followup with biopsy results. 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 Enrike lesion are non itchy and at time have been vesicular. Pt has been treated with Augmentin followed by lou[facility], which has made no difference. Also had one dose on kenalog Im 10 days ago and has not made any difference. Apparently his JONAH is negative. I did go through patient's medications, He has been on hydralzine 100mgTID for his blood pressure for several years now. Hydralazine is known to cause drug induced lupus. His CBC done today appears normal. His PT and INR are normal . His CMP appears normal, other than his creat of 1.8 which is his baseline. His ESR is elevated at 63 and his CRP is elevated at 18.9. This does make me suspicious for Drug induced lupus. I did contact Dr. Kuhn the vascular surgeon at [facility].I did discuss patient presentation with him. Considering his elevated ESR and CRP with purpuric skin rashes, he does agree with possible Drug induced Lupus cutaneous manifestation. Agree to stop his hydralazine and get him on different blood pressure medication. So will try clonidine 1mg po TID. Also Dr. Kuhn recommended a punch biopsy of the lesion to be sent to [facility] to confirm the diagnosis. If the rash resolves in next few week, this might be related to hydralazine induced lupus. Will have a rheumatology followup in [facility].Pt now during discharge claims that he has Antiphospholipid syndrome. I have discussed the recommendation with patient.Will stop hydralazine. Start him on clonidine 1mg TID for his Blood pressure control. Advised to check his blood pressure and if not controlled will need to followup in clinic for BP management. Advised to apply simple skin moisturizer on the rash. avoid scratching the lesions. Punch biopsy has been done. Wound closed with 2 intermittent sutures, using 4 O ethilon. Wound care discussed .Do not wet the wound for 48 hrs. Keep the foot elevated. Simple antibiotics dressing daily. Suture removal in 1 wk.Will followup with biopsy results.
== END 2018-06-20 11:55 | disposition home or self-care (01) ==
LOC: LB.ED 08:16
DX: L93.2 Other local lupus erythematosus (principal); T46.5X5A Adverse effect of other antihypertensive drugs, initial encounter; I11.0 Hypertensive heart disease with heart failure; I50.9 Heart failure, unspecified; E11.41 Type 2 diabetes mellitus with diabetic mononeuropathy; Z79.899 Other long term (current) drug therapy
CPT/HCPCS: 36415; 80053; 85025; 85610; 85651; 86140; 88305; 99283

== ENCOUNTER 2018-07-06 15:38 | Emergency (ER) | payer MEDICARE, BC ==
[2018-07-06 16:28] VITALS: BP 159/76
--- NOTE | 2018-07-07 00:27 | ER ---
HPI: A 72-year-old male here for recheck involving swelling of both feet with a rash that he has had on both feet and lower eggs for the last several weeks. The patient has been repeatedly for the rash. He has been on antibiotics twice starting with Augmentin and followed by [facility]. A culture had been done. The patient is telling me that nothing seems to be helping. He has been using compression socks or CONCHITA socks. He was told to try taking a break from them, and when he did, his feet started to become more swollen. The patient is in the process of being scheduled with Dermatology for further evaluation. The patient states that he does not feel sick. He just does not feel that anything helped so far and he has become somewhat concerned about the swelling that he has developed today with his feet. OBJECTIVE: GENERAL APPEARANCE: The patient is awake and alert. No obvious distress. VITAL SIGNS: Reviewed. His temperature is 98.4, blood pressure 159/76, pulse 94, respirations 18, O2 sats are 97%. Examining the patient's feet reveals just mild swelling, possibly 1+ pitting edema is noted at both feet and ankles. He has a chronic looking erythematous rash present on the dorsal aspect of both feet as well as on the lateral side of the right heel area. He does have scaliness present here. The skin has been depleted in the few areas, possibly from his socks. There is no weeping or drainage. There is some yellowish colored dried discharge around some of the lesions as well. The flashy component on the lateral side of the right heel is a larger lesion that is well marginated and slightly raised. DIAGNOSIS: Chronic dermatis, etiology somewhat unclear. TREATMENT PLAN: I advised the patient that I also feel that Dermatology needs to get involve to fix this condition. In the meantime, I will not give anymore antibiotics. I will give the patient Diflucan 150 mg take today and a second dose to take in 1 week. He is to start wearing his CONCHITA socks again, but I advised that he can take them off if he is arresting when the feet are elevated, but he needs to have them on when is up and about during the course of the day. Again, the patient needs to follow up with Dermatology. He plans on making a phone call tomorrow if referral has been sent in with Dr. Osei's nurse. Hopefully, he can be seen within a week or so. VANNESA/TASHA /[id number]
== END 2018-07-06 16:22 | disposition home or self-care (01) ==
LOC: LB.ED 15:38
DX: L30.9 Dermatitis, unspecified (principal)
CPT/HCPCS: 99282

== ENCOUNTER 2019-05-07 07:39 | Emergency (ER) | payer MEDICARE, BC | END 2019-05-07 07:43 | disposition home or self-care (01) | LOC: LB.ED 07:39 | DX: Z53.21 Procedure and treatment not carried out due to patient leaving prior to being seen by health care provider (principal) ==

== ENCOUNTER 2019-05-27 09:00 | Emergency (ER) | payer MEDICARE, BC ==
[2019-05-27 09:15] VITALS: BP 182/82; PULSE 103
--- NOTE | 2019-05-27 21:02 | EDM.PDOC ---
ED HPI GENERAL MEDICAL PROBLEM - General Chief Complaint: General Stated Complaint: foot blister Time Seen by Provider: 05/27/19 09:30 Source of Information: Reports: Patient History Limitations: Reports: No Limitations - History of Present Illness INITIAL COMMENTS - FREE TEXT/NARRATIVE: This is a 73yo M here for a new onset blister of the right foot. He does have decreased sensation from neuropathy. Patient states he does not have pain or other symptoms but notes a new blister and is concerned of a infected bite or lesion. He does use a space in the crease of the 1st and 2nd right toes which does lie on where the blister is situated. Onset: Sudden Duration: Day(s): Location: Reports: Lower Extremity, Right Improves with: Reports: None Worsens with: Reports: None - Related Data Allergies Allergy/AdvReac Type Severity Reaction Status Date / Time cephalexin Allergy Anaphylactic Verified 05/27/19 09:16 Shock Home Meds: Home Meds Aspirin [Halfprin] 81 mg PO DAILY 07/10/16 [History] Calcium Citrate/Vitamin D3 [Calcium Citrate + D] 1 tab PO DAILY 07/10/16 [ History] Cetirizine [ZyrTEC] 10 mg pe PO DAILY 07/10/16 [History] Doxazosin Mesylate [Cardura] 8 mg PO DAILY 07/10/16 [History] Febuxostat [Uloric] 80 mg PO DAILY 07/10/16 [History] Furosemide [Lasix] 80 mg PO DAILY 07/10/16 [History] Gabapentin [Neurontin] 100 mg PO DAILY 07/10/16 [History] Omeprazole 20 mg PO DAILY 07/10/16 [History] Sildenafil Citrate [Viagra] 25 mg PO DAILY 07/10/16 [History] Simvastatin [Zocor] 20 mg PO DAILY 07/10/16 [History] Ubidecarenone [Co Q-10] 200 mg PO DAILY 07/10/16 [History] amLODIPine Besylate [Amlodipine Besylate] 10 mg PO DAILY 07/10/16 [History] glipiZIDE [Glucotrol XL] 2.5 mg PO DAILY 07/10/16 [History] hydrALAZINE [Apresoline] 100 mg PO TID 07/10/16 [History] traMADol [Ultram] 50 mg PO TID PRN 07/10/16 [History] Acetaminophen [Tylenol Extra Strength] 1,000 mg PO TID 03/25/17 [History] Calcium Citrate/Vitamin D3 [Citracal + D Maximum Caplet] 1 tab PO BID 03/25/17 [ History] Ferrous Sulfate [Iron] 325 mg PO DAILY 03/25/17 [History] Fish Oil/[place]-3 Fatty Acids [Fish Oil 1,000 MG] 1,000 mg PO DAILY 03/25/17 [ History] Fluorometholone [Fluorometholone 0.1% Ophth Susp] 1 drop OP Q6HR 03/25/17 [ History] Hydrocodone/Acetaminophen [Hydrocodon-Acetaminoph 2.5-325] 5 - 325 mg PO Q6HR [History] Polyethylene Glycol 3350 [MiraLAX] 17 gm PO DAILY 03/25/17 [History] Polyethylene Glycol 3350 [MiraLAX] 17 gm PO DAILY 03/25/17 [History] Valsartan 320 mg PO DAILY 03/25/17 [History] Warfarin [Coumadin] 5 mg PO DAILY 03/25/17 [History] Amoxicillin/Potassium Clav [Augmentin 875-125 Tablet] 1 each PO BID #20 tablet 06/12/18 [Rx] Bacitracin 3.5 gm OP Q6HR 10 Days #1 oint...g. 06/12/18 [Rx] Past Medical History HEENT History: Reports: Impaired Vision Cardiovascular History: Reports: Heart Failure, High Cholesterol, Hypertension, [place], Prior Cardiac Arrest, Other (See Below) Other Cardiovascular History: hyperkalemia Respiratory History: Reports: Sleep Apnea Gastrointestinal History: Reports: Diverticulosis, GERD, Other (See Below) Other Gastrointestinal History: lactose intolerance Genitourinary History: Reports: Renal Disease, Other (See Below) Other Genitourinary History: Blood work has been high and has hx diabetes Musculoskeletal History: Reports: Back Pain, Chronic, Gout Neurological History: Reports: Neuropathy, Diabetic, Neuropathy, Peripheral, Other (See Below) Other Neuro History: paresthesia Endocrine/Metabolic History: Reports: Diabetes, Type II Hematologic History: Reports: Anemia Other Hematologic History: antiphosholipic , prothombin gene mutation, antibody syndrome, cannot take ibuprophin Dermatologic History: Reports: Other (See Below) Other Dermatologic History: current rash on feet that travels up legs to thighs and scrotum - Infectious Disease History Infectious Disease History: Reports: Chicken Pox - Past Surgical History Cardiovascular Surgical History: Reports: None, Coronary Artery Bypass, Percutaneous Transluminal Angioplasty GI Surgical History: Reports: Colonoscopy Social & Family History - Family History Family Medical History: Noncontributory - Caffeine Use Caffeine Use: Reports: Coffee ED ROS GENERAL - Review of Systems Review Of Systems: ROS reveals no pertinent complaints other than HPI. ED EXAM, GENERAL - Physical Exam Exam: See Below Exam Limited By: No Limitations General Appearance: Alert, WD/WN, No Apparent Distress Ears: Normal External Exam Nose: Normal Inspection Throat/Mouth: Normal Inspection Head: Atraumatic, Normocephalic Neck: Normal Inspection Respiratory/Chest: No Respiratory Distress Cardiovascular: Normal Peripheral Pulses Peripheral Pulses: 2+: Dorsalis Pedis (L), Dorsalis Pedis (R) Skin Exam: Other (2x3.5cm blister of the web of the 1st and 2nd right toes. ) Course - Vital Signs Last Recorded V/S: Last Vital Signs Temp 36.9 C 05/27/19 09:10 Pulse 103 H 05/27/19 09:10 Resp 18 05/27/19 09:10 BP 182/82 H 05/27/19 09:10 Pulse Ox 97 05/27/19 09:10 Departure - Departure Time of Disposition: 09:45 Disposition: Home, Self-Care 01 Condition: Good Clinical Impression: Blister - Discharge Information Instructions: Diabetes Mellitus and Foot Care Forms: ED Department Discharge Additional Instructions: Keep the blister intact as long as possible. Be aware of your feet and check them daily. If you need the divider between your toes, check your feet. The blister is more than likely from the divider, it rubbed the site raw and formed the blister. Follow up as needed either in the clinic or the ER. Have a good day! Rachell Bravo - Problem List & Annotations (1) Blister SNOMED Code(s): 235082474 Code(s): T14.8XXA - OTHER INJURY OF UNSPECIFIED BODY REGION, INITIAL ENCOUNTER Status: Acute - Problem List Review Problem List Initiated/Reviewed/Updated: Yes - Assessment/Plan Plan: Counseled on wound care and management as needed. Discussed protection of the blister wall for as long as possible and continued f/u as needed. Discussed monitoring for infection and f/u if any concerns.
== END 2019-05-27 09:41 | disposition home or self-care (01) ==
LOC: LB.ED 09:00
DX: S90.821A Blister (nonthermal), right foot, initial encounter (principal); I11.0 Hypertensive heart disease with heart failure; I50.9 Heart failure, unspecified; E78.00 Pure hypercholesterolemia, unspecified; I25.2 Old myocardial infarction; K21.9 Gastro-esophageal reflux disease without esophagitis; E11.40 Type 2 diabetes mellitus with diabetic neuropathy, unspecified; Z88.1 Allergy status to other antibiotic agents; Z79.82 Long term (current) use of aspirin; Z79.899 Other long term (current) drug therapy; Z79.84 Long term (current) use of oral hypoglycemic drugs; Z79.01 Long term (current) use of anticoagulants; X58.XXXA Exposure to other specified factors, initial encounter
CPT/HCPCS: 99282

== ENCOUNTER 2020-03-28 08:55 | Emergency (ER) | payer MEDICARE, BC ==
[2020-03-28] MEDS ORDERED: Sodium Chloride 0.9% 10 ML Syringe FLUSH PRN (09:03)
[2020-03-28] MEDS ORDERED: Nitroglycerin 0.4 MG Tab.SL SL PRN (09:04)
--- NOTE | 2020-03-28 09:32 | EDM.PDOC ---
ED HPI GENERAL MEDICAL PROBLEM - General Chief Complaint: Chest Pain Stated Complaint: CHEST PAIN Time Seen by Provider: 03/28/20 08:55 Source of Information: Reports: Patient History Limitations: Reports: No Limitations - History of Present Illness INITIAL COMMENTS - FREE TEXT/NARRATIVE: This patient presents to the ED for evaluation of chest pressure Onset: Gradual Onset Date: 03/14/20 Duration: Waxing/Waning Location: Reports: Chest, Abdomen Quality: Reports: Pressure Severity: Moderate Improves with: Reports: None Worsens with: Reports: None Associated Symptoms: Reports: Chest Pain, Diaphoresis, Shortness of Breath. Denies: Headaches, Nausea/Vomiting, Syncope - Related Data Allergies Allergy/AdvReac Type Severity Reaction Status Date / Time cephalexin Allergy Anaphylactic Verified 03/28/20 09:34 Shock Home Meds: Home Meds Aspirin [Halfprin] 81 mg PO DAILY 07/10/16 [History] Calcium Citrate/Vitamin D3 [Calcium Citrate + D] 1 tab PO DAILY 07/10/16 [ History] Cetirizine [ZyrTEC] 10 mg pe PO DAILY 07/10/16 [History] Doxazosin Mesylate [Cardura] 8 mg PO DAILY 07/10/16 [History] Febuxostat [Uloric] 80 mg PO DAILY 07/10/16 [History] Furosemide [Lasix] 80 mg PO DAILY 07/10/16 [History] Gabapentin [Neurontin] 100 mg PO DAILY 07/10/16 [History] Omeprazole 20 mg PO DAILY 07/10/16 [History] Sildenafil Citrate [Viagra] 25 mg PO DAILY 07/10/16 [History] Simvastatin [Zocor] 20 mg PO DAILY 07/10/16 [History] Ubidecarenone [Co Q-10] 200 mg PO DAILY 07/10/16 [History] amLODIPine Besylate [Amlodipine Besylate] 10 mg PO DAILY 07/10/16 [History] glipiZIDE [Glucotrol XL] 2.5 mg PO DAILY 07/10/16 [History] hydrALAZINE [Apresoline] 100 mg PO TID 07/10/16 [History] traMADol [Ultram] 50 mg PO TID PRN 07/10/16 [History] Acetaminophen [Tylenol Extra Strength] 1,000 mg PO TID 03/25/17 [History] Calcium Citrate/Vitamin D3 [Citracal + D Maximum Caplet] 1 tab PO BID 03/25/17 [ History] Ferrous Sulfate [Iron] 325 mg PO DAILY 03/25/17 [History] Fish Oil/[place]-3 Fatty Acids [Fish Oil 1,000 MG] 1,000 mg PO DAILY 03/25/17 [ History] Fluorometholone [Fluorometholone 0.1% Ophth Susp] 1 drop OP Q6HR 03/25/17 [ History] Hydrocodone/Acetaminophen [Hydrocodon-Acetaminoph 2.5-325] 5 - 325 mg PO Q6HR [History] Polyethylene Glycol 3350 [MiraLAX] 17 gm PO DAILY 03/25/17 [History] Polyethylene Glycol 3350 [MiraLAX] 17 gm PO DAILY 03/25/17 [History] Valsartan 320 mg PO DAILY 03/25/17 [History] Warfarin [Coumadin] 5 mg PO DAILY 03/25/17 [History] Amoxicillin/Potassium Clav [Augmentin 875-125 Tablet] 1 each PO BID #20 tablet 06/12/18 [Rx] Bacitracin 3.5 gm OP Q6HR 10 Days #1 oint...g. 06/12/18 [Rx] Past Medical History HEENT History: Reports: Impaired Vision Cardiovascular History: Reports: Heart Failure, High Cholesterol, Hypertension, [place], Prior Cardiac Arrest, Other (See Below) Other Cardiovascular History: hyperkalemia Respiratory History: Reports: Sleep Apnea Gastrointestinal History: Reports: Diverticulosis, GERD, Other (See Below) Other Gastrointestinal History: lactose intolerance Genitourinary History: Reports: Renal Disease, Other (See Below) Other Genitourinary History: Blood work has been high and has hx diabetes Musculoskeletal History: Reports: Back Pain, Chronic, Gout Neurological History: Reports: Neuropathy, Diabetic, Neuropathy, Peripheral, Other (See Below) Other Neuro History: paresthesia Endocrine/Metabolic History: Reports: Diabetes, Type II Hematologic History: Reports: Anemia Other Hematologic History: antiphosholipic , prothombin gene mutation, antibody syndrome, cannot take ibuprophin Dermatologic History: Reports: Other (See Below) Other Dermatologic History: current rash on feet that travels up legs to thighs and scrotum - Infectious Disease History Infectious Disease History: Reports: Chicken Pox - Past Surgical History Cardiovascular Surgical History: Reports: None, Coronary Artery Bypass, Percutaneous Transluminal Angioplasty GI Surgical History: Reports: Colonoscopy Social & Family History - Family History Family Medical History: Noncontributory - Caffeine Use Caffeine Use: Reports: Coffee ED ROS GENERAL - Review of Systems Review Of Systems: Comprehensive ROS is negative, except as noted in HPI. ED EXAM, GENERAL - Physical Exam Exam: See Below Exam Limited By: No Limitations General Appearance: Alert, No Apparent Distress Eye Exam: Bilateral Eye: PERRL Nose: Normal Inspection Throat/Mouth: Normal Inspection, Normal Oropharynx Head: Atraumatic, Normocephalic Neck: Normal Inspection Respiratory/Chest: No Respiratory Distress, Lungs Clear, Normal Breath Sounds, No Accessory Muscle Use Cardiovascular: Regular Rate, Rhythm GI/Abdominal: Normal Bowel Sounds, Soft, Non-Tender, Distended Extremities: Normal Capillary Refill Neurological: Alert, Oriented Skin Exam: Warm, Dry, Intact Course - Vital Signs Last Recorded V/S: Last Vital Signs Temp 37.2 C 03/28/20 08:55 Pulse 65 03/28/20 09:45 Resp 15 03/28/20 09:19 BP 126/73 03/28/20 09:45 Pulse Ox 94 L 03/28/20 09:19 - Orders/Labs/Meds Orders: Active Orders 24 hr Category Date Time Status EKG Documentation Completion [RC] ASDIRECTED Care 03/28/20 09:04 Active Saline Lock Insert [OM.PC] Stat Oth 03/28/20 09:03 Ordered Labs: Laboratory Tests 03/28/20 03/28/20 03/28/20 Range/Units 09:03 09:03 09:03 WBC 8.8 D (4.0-11.0) K/uL RBC 2.83 L (4.50-6.50) M/uL Hgb 9.8 L (13.0-18.0) g/dL Hct 29.0 L (40.0-54.0) % MCV 103 H (76-96) fL MCH 34.6 H (27.0-32.0) pg MCHC 33.8 (31.0-35.0) g/dL RDW 14.5 (11.0-16.0) % Plt Count 143 L D (150-400) K/uL MPV 10.0 (6.0-10.0) fL Neut % (Auto) 73.2 H (45.0-70.0) % Lymph % (Auto) 10.7 L (20.0-40.0) % Garvin % (Auto) 14.6 H (3.0-10.0) % Eos % (Auto) 0.9 L (1.0-5.0) % Baso % (Auto) 0.6 H (0.0-0.5) % Neut # (Auto) 6.42 (2.00-7.50) K/uL Lymph # (Auto) 0.94 L (1.50-4.00) K/uL Garvin # (Auto) 1.28 H (0.20-0.80) K/uL Eos # (Auto) 0.08 (0.04-0.40) K/uL Baso # (Auto) 0.05 (0.02-0.10) K/uL PT 20.3 H D (9.0-11.5) sec INR 2.2 D (1.0-3.5) Sodium 138 (136-145) mmol/L Potassium 4.0 (3.5-5.1) mmol/L Chloride 102 (98-107) mmol/L Carbon Dioxide 21.4 (21.0-32.0) mmol/L Anion Gap 18.6 H (5.0-15.0) mmol/L BUN 46 H D (8-26) mg/dL Creatinine 1.83 H (0.70-1.30) mg/dL Est Cr Clr Drug Dosing 37.15 mL/min Estimated GFR (MDRD) 36 L (>60) MLS/MIN BUN/Creatinine Ratio 25.1 H (6-25) Glucose 123 H (74-100) mg/dL Calcium 8.2 L (8.5-10.1) mg/dL Troponin I < 0.017 (0.000-0.060) ng/mL Meds: Medications Discontinued Medications Generic Name Dose Route Start Last Admin Trade Name Freq PRN Reason Stop Dose Admin Famotidine 20 mg 03/28/20 09:39 03/28/20 11:26 Pepcid IVPUSH 03/28/20 09:40 Not Given ONETIME ONE Nitroglycerin 0.4 mg 03/28/20 09:04 03/28/20 09:08 Nitrostat SL 0.4 mg Q5M PRN Administration Chest Pain Omeprazole 20 mg 03/28/20 10:00 03/28/20 09:50 Omeprazole PO 03/28/20 10:01 20 mg ONETIME ONE Administration Ranitidine HCl 150 mg 03/28/20 09:45 03/28/20 11:26 Zantac PO 03/28/20 09:46 Not Given ONETIME ONE Sodium Chloride 10 ml 03/28/20 09:03 Saline Flush FLUSH ASDIRECTED PRN Keep Vein Open - Re-Assessments/Exams Free Text/Narrative Re-Assessment/Exam: 03/28/20 12:51 This patient presents with chest pressure. The work up in the ED is thus far negative. The differential diagnosis of chest pain is broad and includes life threatening etiologies such as acute coronary syndrome, myocardial infarction, pulmonary embolism, acute aortic dissection, amongst others. Other causes may include pneumonia, pneumothorax, chest wall source, pericarditis, pleurisy, esophageal spasm, etc. No serious etiology for the chest pain were detected today during this visit. Workup included labs, EKG, and CXR. Close follow up with primary care is indicated should the pain continue, as further work up may be performed; this was made clear to the patient, who understands. Departure - Departure Time of Disposition: 10:10 Disposition: Home, Self-Care 01 Condition: Good Clinical Impression: Chest pain Instructions: Shortness of Breath, Adult Referrals: PCP,None [Primary Care Provider] - Forms: ED Department Discharge Additional Instructions: Discharge home. Duo neb treatment 2 times a day. Follow up in the clinic with your primary provider. Return to the ER if you have concerns. Sepsis Event Note - Focused Exam Vital Signs: Vital Signs Temp Pulse Resp BP BP Pulse Ox 03/28/20 09:45 65 126/73 03/28/20 09:19 62 15 128/105 H 94 L 03/28/20 09:08 137/66 03/28/20 09:00 59 L 137/66 03/28/20 08:55 37.2 C 65 20 148/62 H 91 L Date Exam was Performed: 03/28/20 Time Exam was Performed: 12:51 - My Orders Last 24 Hours: My Active Orders 03/28/20 09:03 Saline Lock Insert [OM.PC] Stat 03/28/20 09:04 EKG Documentation Completion [RC] ASDIRECTED - Assessment/Plan Last 24 Hours: My Active Orders 03/28/20 09:03 Saline Lock Insert [OM.PC] Stat 03/28/20 09:04 EKG Documentation Completion [RC] ASDIRECTED
[2020-03-28] MEDS ORDERED: Famotidine 20 MG/2 ML SDV IVPUSH ONE (09:39)
[2020-03-28] MEDS ORDERED: Omeprazole 20 MG Cap.CR PO ONE (10:00)
[2020-03-28 11:28] VITALS: BP 126/73; PULSE 65
--- NOTE | 2020-03-28 12:05 | CR ---
DATE OF SERVICE: 03/28/2020 CLINICAL DATA: Chest pain AP Chest: No priors. The patient has taken a very poor inspiration. The patient is status post median sternotomy. The heart is enlarged. It is probably accentuated by the projection and poor inspiration. The pulmonary vasculature appears prominent suggesting pulmonary venous congestion. It may be accentuated by the poor inspiration. There are minimal atelectatic changes in both lung bases. There is slight blunting of the left costophrenic angle suggesting a small left pleural effusion. Right costophrenic angle is cut off. No pneumothorax. MTDD
== END 2020-03-28 10:10 | disposition home or self-care (01) ==
LOC: LB.ED 08:55
DX: R07.89 Other chest pain (principal); E78.00 Pure hypercholesterolemia, unspecified; I11.0 Hypertensive heart disease with heart failure; I50.9 Heart failure, unspecified; I25.2 Old myocardial infarction; K21.9 Gastro-esophageal reflux disease without esophagitis; M10.9 Gout, unspecified; E11.42 Type 2 diabetes mellitus with diabetic polyneuropathy; Z88.1 Allergy status to other antibiotic agents; Z79.82 Long term (current) use of aspirin; Z79.899 Other long term (current) drug therapy; Z79.84 Long term (current) use of oral hypoglycemic drugs
CPT/HCPCS: 36415; 71045; 80048; 84484; 85025; 85610; 93005; 99285-25; A9270-GY

== ENCOUNTER 2020-07-17 10:49 | Inpatient (IN) | payer MEDICARE, BC ==
[2020-07-17] MEDS ORDERED: Sodium Chloride 0.9% 10 ML Syringe FLUSH PRN (10:57)
--- NOTE | 2020-07-17 11:23 | EDM.PDOC ---
ED HPI GENERAL MEDICAL PROBLEM - General Chief Complaint: General Stated Complaint: SHORT OF BREATH Time Seen by Provider: 07/17/20 11:00 Source of Information: Reports: Patient History Limitations: Reports: No Limitations - History of Present Illness INITIAL COMMENTS - FREE TEXT/NARRATIVE: 2 weeks of increased SOB with 20-30 lb weight gain. Denies any fever, chills, CP, orthopnea, or urinary symptoms. Was in [place] ED 2 months ago with similar symptoms. Improves with: Reports: None Worsens with: Reports: None - Related Data Allergies Allergy/AdvReac Type Severity Reaction Status Date / Time cephalexin Allergy Anaphylactic Verified 07/17/20 11:28 Shock Home Meds: Home Meds Aspirin [Halfprin] 81 mg PO DAILY 07/10/16 [History] Calcium Citrate/Vitamin D3 [Calcium Citrate + D] 1 tab PO DAILY 07/10/16 [History] Cetirizine [ZyrTEC] 10 mg pe PO DAILY 07/10/16 [History] Doxazosin Mesylate [Cardura] 4 mg PO DAILY 07/10/16 [History] Febuxostat [Uloric] 80 mg PO DAILY 07/10/16 [History] Furosemide [Lasix] 60 mg PO DAILY 07/10/16 [History] Gabapentin [Neurontin] 100 mg PO DAILY 07/10/16 [History] Omeprazole 20 mg PO DAILY 07/10/16 [History] Sildenafil Citrate [Viagra] 25 mg PO DAILY 07/10/16 [History] Simvastatin [Zocor] 20 mg PO DAILY 07/10/16 [History] Ubidecarenone [Co Q-10] 300 mg PO DAILY 07/10/16 [History] amLODIPine Besylate [Amlodipine Besylate] 5 mg PO DAILY 07/10/16 [History] glipiZIDE [Glucotrol XL] 2.5 mg PO DAILY 07/10/16 [History] hydrALAZINE [Apresoline] 100 mg PO TID 07/10/16 [History] traMADol [Ultram] 50 mg PO TID PRN 07/10/16 [History] Acetaminophen [Tylenol Extra Strength] 1,000 mg PO TID 03/25/17 [History] Calcium Citrate/Vitamin D3 [Citracal + D Maximum [place]] 1 tab PO DAILY 03/25/17 [History] Ferrous Sulfate [Iron] 325 mg PO DAILY 03/25/17 [History] Fish Oil/[place]-3 Fatty Acids [Fish Oil 1,000 MG] 1,000 mg PO DAILY 03/25/17 [History] Fluorometholone [Fluorometholone 0.1% Ophth Susp] 1 drop OP Q6HR PRN 03/25/17 [History] Hydrocodone/Acetaminophen [Hydrocodon-Acetaminoph 2.5-325] 5 - 325 mg PO Q6HR 03/25/17 [History] Polyethylene Glycol 3350 [MiraLAX] 17 gm PO DAILY 03/25/17 [History] Polyethylene Glycol 3350 [MiraLAX] 17 gm PO DAILY 03/25/17 [History] Valsartan 320 mg PO DAILY 03/25/17 [History] Warfarin [Coumadin] 5 mg PO DAILY 03/25/17 [History] Amoxicillin/Potassium Clav [Augmentin 875-125 Tablet] 1 each PO BID #20 tablet 06/12/18 [Rx] Bacitracin 3.5 gm OP Q6HR 10 Days #1 oint...g. 06/12/18 [Rx] Irbesartan 300 mg PO DAILY 07/17/20 [History] Metoprolol Tartrate 50 mg PO BID 07/17/20 [History] Tamsulosin [Tamsulosin 24 Hr] 0.4 mg PO DAILY 07/17/20 [History] allopurinoL [Zyloprim] 300 mg PO DAILY 07/17/20 [History] cloNIDine [Catapres] 0.1 mg PO Q12HR 07/17/20 [History] rOPINIRole [Requip] 3 mg PO DAILY 07/17/20 [History] Past Medical History HEENT History: Reports: Impaired Vision Cardiovascular History: Reports: Heart Failure, High Cholesterol, Hypertension, NM, Prior Cardiac Arrest, Other (See Below) Other Cardiovascular History: hyperkalemia Respiratory History: Reports: Sleep Apnea Gastrointestinal History: Reports: Diverticulosis, GERD, Other (See Below) Other Gastrointestinal History: lactose intolerance Genitourinary History: Reports: Renal Disease, Other (See Below) Other Genitourinary History: Blood work has been high and has hx diabetes Musculoskeletal History: Reports: Back Pain, Chronic, Gout Neurological History: Reports: Neuropathy, Diabetic, Neuropathy, Peripheral, Other (See Below) Other Neuro History: paresthesia Endocrine/Metabolic History: Reports: Diabetes, Type II Hematologic History: Reports: Anemia Other Hematologic History: antiphosholipic , prothombin gene mutation, antibody syndrome, cannot take ibuprophin Dermatologic History: Reports: Other (See Below) Other Dermatologic History: current rash on feet that travels up legs to thighs and scrotum - Infectious Disease History Infectious Disease History: Reports: Chicken Pox - Past Surgical History Cardiovascular Surgical History: Reports: None, Coronary Artery Bypass, Percutaneous Transluminal Angioplasty GI Surgical History: Reports: Colonoscopy Social & Family History - Family History Family Medical History: Noncontributory - Caffeine Use Caffeine Use: Reports: Coffee ED ROS GENERAL - Review of Systems Review Of Systems: See Below Constitutional: Reports: Weight Gain HEENT: Reports: No Symptoms Respiratory: Reports: Shortness of Breath, Cough Cardiovascular: Reports: Dyspnea on Exertion. Denies: Chest Pain, Blood Pressure Problem Endocrine: Reports: No Symptoms GI/Abdominal: Reports: No Symptoms, Diarrhea (diarrhea a few days ago, now resolved) : Reports: No Symptoms Musculoskeletal: Reports: No Symptoms Skin: Reports: No Symptoms Neurological: Reports: No Symptoms Psychiatric: Reports: No Symptoms Hematologic/Lymphatic: Reports: No Symptoms ED EXAM, GENERAL - Physical Exam Exam: See Below Exam Limited By: No Limitations General Appearance: Alert, No Apparent Distress Throat/Mouth: Normal Voice Head: Atraumatic Neck: Normal Inspection, Non-Tender, Full Range of Motion Respiratory/Chest: Lungs Clear, Crackles (slight crackles in bilateral lobes) Cardiovascular: Normal Peripheral Pulses, Regular Rate, Rhythm, No JVD, No Murmur, No Rub Peripheral Pulses: 3+: Carotid (L), Carotid (R), Radial (L), Radial (R), Dorsalis Pedis (L), Dorsalis Pedis (R) GI/Abdominal: Normal Bowel Sounds, Soft, Non-Tender (Male) Exam: Deferred Rectal (Males) Exam: Deferred Back Exam: Normal Inspection, Full Range of Motion Extremities: Normal Inspection, Normal Capillary Refill, Pedal Edema (patient states LE edema has increaesed over the past 2 weeks) Neurological: Alert, Oriented, Normal Cognition (bilateral neuropathy in LE, decreased feeling in feet) Psychiatric: Normal Affect, Normal Mood Skin Exam: Warm, Dry, Intact, No Rash Lymphatic: No Adenopathy Course - Vital Signs Last Recorded V/S: Last Vital Signs Temp 97.8 F 07/17/20 11:27 Pulse 51 L 07/17/20 12:40 Resp 18 07/17/20 12:40 BP 143/62 H 07/17/20 12:40 Pulse Ox 95 07/17/20 12:40 - Orders/Labs/Meds Orders: Active Orders 24 hr Category Date Time Status EKG Documentation Completion [RC] ASDIRECTED Care 07/17/20 11:42 Active Sodium Chloride 0.9% [Saline Flush] Med 07/17/20 10:57 Active 10 ml FLUSH ASDIRECTED PRN Peripheral IV Insertion Adult [OM.PC] Routine Oth 07/17/20 10:57 Ordered Medication Orders Sodium Chloride (Saline Flush) 10 ml FLUSH ASDIRECTED PRN PRN Reason: Keep Vein Open Labs: Laboratory Tests 07/17/20 07/17/20 07/17/20 Range/Units 11:15 11:19 11:41 WBC 7.7 (4.0-11.0) K/uL RBC 2.94 L (4.50-6.50) M/uL Hgb 9.6 L (13.0-18.0) g/dL Hct 29.5 L (40.0-54.0) % MCV 100 H (76-96) fL MCH 32.7 H (27.0-32.0) pg MCHC 32.5 (31.0-35.0) g/dL RDW 15.2 (11.0-16.0) % Plt Count 214 D (150-400) K/uL MPV 9.0 (6.0-10.0) fL Neut % (Auto) 75.9 H (45.0-70.0) % Lymph % (Auto) 10.1 L (20.0-40.0) % [place] % (Auto) 10.4 H (3.0-10.0) % Eos % (Auto) 2.7 (1.0-5.0) % Baso % (Auto) 0.9 H (0.0-0.5) % Neut # (Auto) 5.86 (2.00-7.50) K/uL Lymph # (Auto) 0.78 L (1.50-4.00) K/uL [place] # (Auto) 0.80 (0.20-0.80) K/uL Eos # (Auto) 0.21 (0.04-0.40) K/uL Baso # (Auto) 0.07 (0.02-0.10) K/uL D-Dimer, Quantitative 668 H (0-400) ng/mL Sodium (136-145) mmol/L Potassium (3.5-5.1) mmol/L Chloride (98-107) mmol/L Carbon Dioxide (21.0-32.0) mmol/L Anion Gap (5.0-15.0) mmol/L BUN (8-26) mg/dL Creatinine (0.70-1.30) mg/dL Est Cr Clr Drug Dosing mL/min Estimated GFR (MDRD) (>60) MLS/MIN BUN/Creatinine Ratio (6-25) Glucose (74-100) mg/dL Calcium (8.5-10.1) mg/dL Total Bilirubin (0.0-1.0) mg/dL AST (15-37) U/L ALT (12-78) U/L Alkaline Phosphatase (46-116) U/L Troponin I (0.000-0.060) ng/mL B-Natriuretic Peptide (0-450) pg/mL Total Protein (6.4-8.2) g/dL Albumin (3.4-5.0) g/dL Globulin (2.2-4.2) g/dL Albumin/Globulin Ratio (0.8-2.0) SARS CoV-2 RNA Rapid ALEIDA Negative 07/17/20 07/17/20 Range/Units 11:50 11:55 WBC (4.0-11.0) K/uL RBC (4.50-6.50) M/uL Hgb (13.0-18.0) g/dL Hct (40.0-54.0) % MCV (76-96) fL MCH (27.0-32.0) pg MCHC (31.0-35.0) g/dL RDW (11.0-16.0) % Plt Count (150-400) K/uL MPV (6.0-10.0) fL Neut % (Auto) (45.0-70.0) % Lymph % (Auto) (20.0-40.0) % [place] % (Auto) (3.0-10.0) % Eos % (Auto) (1.0-5.0) % Baso % (Auto) (0.0-0.5) % Neut # (Auto) (2.00-7.50) K/uL Lymph # (Auto) (1.50-4.00) K/uL [place] # (Auto) (0.20-0.80) K/uL Eos # (Auto) (0.04-0.40) K/uL Baso # (Auto) (0.02-0.10) K/uL D-Dimer, Quantitative (0-400) ng/mL Sodium 134 L (136-145) mmol/L Potassium 4.7 (3.5-5.1) mmol/L Chloride 103 (98-107) mmol/L Carbon Dioxide 21.7 D (21.0-32.0) mmol/L Anion Gap 14.0 (5.0-15.0) mmol/L BUN 33 H D (8-26) mg/dL Creatinine 1.54 H (0.70-1.30) mg/dL Est Cr Clr Drug Dosing 42.79 mL/min Estimated GFR (MDRD) 44 L (>60) MLS/MIN BUN/Creatinine Ratio 21.4 (6-25) Glucose 130 H D (74-100) mg/dL Calcium 8.8 (8.5-10.1) mg/dL Total Bilirubin 0.8 D (0.0-1.0) mg/dL AST 18 (15-37) U/L ALT 27 (12-78) U/L Alkaline Phosphatase 176 H (46-116) U/L Troponin I < 0.017 (0.000-0.060) ng/mL B-Natriuretic Peptide 2405 H D (0-450) pg/mL Total Protein 7.7 (6.4-8.2) g/dL Albumin 3.5 (3.4-5.0) g/dL Globulin 4.2 (2.2-4.2) g/dL Albumin/Globulin Ratio 0.8 (0.8-2.0) SARS CoV-2 RNA Rapid ALEIDA Meds: Medications Generic Name Dose Route Start Last Admin Trade Name Freq PRN Reason Stop Dose Admin Sodium Chloride 10 ml 07/17/20 10:57 Saline Flush FLUSH ASDIRECTED PRN Keep Vein Open Discontinued Medications Generic Name Dose Route Start Last Admin Trade Name Freq PRN Reason Stop Dose Admin Furosemide 40 mg 07/17/20 12:22 07/17/20 12:31 Lasix IVPUSH 07/17/20 12:23 40 mg NOW ONE Administration Furosemide Confirm 07/17/20 12:39 07/17/20 12:38 Lasix Administered 07/17/20 12:40 Not Given Dose 40 mg .ROUTE .STK-MED ONE Departure - Departure Time of Disposition: 12:45 Disposition: Admitted As Inpatient 65 Condition: Good Clinical Impression: CHF, Congestive heart failure - Discharge Information *PRESCRIPTION DRUG MONITORING PROGRAM REVIEWED*: Not Applicable *COPY OF PRESCRIPTION DRUG MONITORING REPORT IN PATIENT PAUL: Not Applicable Sepsis Event Note (ED) - Evaluation Sepsis Screening Result: No Definite Risk - Focused Exam Vital Signs: Vital Signs Temp Pulse Resp BP Pulse Ox 07/17/20 11:29 88 97 07/17/20 11:27 97.8 F 63 18 164/70 H 96 07/17/20 10:52 97.8 F 63 20 164/70 H 96 - Problem List Review Problem List Initiated/Reviewed/Updated: Yes - My Orders Last 24 Hours: My Active Orders 07/17/20 10:57 Sodium Chloride 0.9% [Saline Flush] 10 ml FLUSH ASDIRECTED PRN Peripheral IV Insertion Adult [OM.PC] Routine 07/17/20 11:42 EKG Documentation Completion [RC] ASDIRECTED - Assessment/Plan Last 24 Hours: My Active Orders 07/17/20 10:57 Sodium Chloride 0.9% [Saline Flush] 10 ml FLUSH ASDIRECTED PRN Peripheral IV Insertion Adult [OM.PC] Routine 07/17/20 11:42 EKG Documentation Completion [RC] ASDIRECTED Assessment:: patient is negative on the WELLS score for PE and low risk on the Daviess Score (1 point) making likelihood and my suspicion of PE very low despite of elevated ddimer. He is not tachycardic, hyper/hypotensive, denies any CP, and CXR shows an increase in vascular pattern consistent with mild to moderate congestive failure. . Patient states he feels the same as 2 months ago with previous CHF exacerbation and today has an elevated BNP. Denies any leg pain, but does have bilateral LE edema which patient states is normal just slightly increased from baseline.
--- NOTE | 2020-07-17 12:15 | CR ---
Date of Service: 07/17/20 Clinical Data: SOB PA AND LATERAL CHEST: Comparison is made to a prior exam dated 03/28/20. The patient is status post median sternotomy. The heart remains enlarged, unchanged. There is calcification of the aortic arch. The pulmonary vasculature appears more prominent than on the prior exam with cephalization of flow suggesting pulmonary venous congestion. There are mild interstitial changes throughout both lungs. Interstitial edema is suspected. There is slight blunting of both costophrenic angles posteriorly on the lateral view consistent with small bilateral pleural effusions. No pneumothorax. The exam is otherwise unchanged from the prior. [id number] MTDD
[2020-07-17] MEDS ORDERED: Furosemide 40 MG/4 ML VIAL IVPUSH ONE (12:22)
[2020-07-17] MEDS ORDERED: Furosemide 40 MG/4 ML VIAL ONE (12:39)
[2020-07-17] MEDS ORDERED: HYDRALAZINE 100 MG PO SCH (14:00)
[2020-07-17] MEDS ORDERED: hydrALAZINE 25 MG Tab PO SCH (15:15)
[2020-07-17] MEDS: Acetaminophen 500 MG Tab PO SCH ×2 (15:30→20:22)
[2020-07-17] MEDS: hydrALAZINE 25 MG Tab PO SCH (16:12)
[2020-07-17] MEDS ORDERED: rOPINIRole 3 MG Tab PO SCH ×2 (20:00)
[2020-07-17] MEDS ORDERED: UBIDECARENONE 300 MG PO SCH (20:00)
[2020-07-17] MEDS ORDERED: Metoprolol Tartrate 50 MG Tab PO SCH (20:00)
[2020-07-17] MEDS ORDERED: IRBESARTAN 300 MG PO SCH (20:00)
[2020-07-17] MEDS ORDERED: Allopurinol 300 MG Tab PO SCH ×2 (20:00)
[2020-07-17] MEDS: cloNIDine 0.1 MG Tab PO SCH (20:21)
[2020-07-17] MEDS: Fish Oil/Omega-3 Fatty Acids 1 Gm Cap PO SCH (20:22)
[2020-07-17] MEDS: Amoxicillin/Clavulanate K 875-125 MG Tab PO SCH (20:22)
[2020-07-17] MEDS: Simvastatin 20 MG Tab PO SCH (20:22)
[2020-07-17] MEDS: Gabapentin 100 MG Cap PO SCH (20:24)
[2020-07-17] MEDS: Warfarin 5 MG Tab PO SCH (20:25)
[2020-07-18] MEDS: hydrALAZINE 25 MG Tab PO SCH (01:05)
[2020-07-18] MEDS: Amoxicillin/Clavulanate K 875-125 MG Tab PO SCH (07:46)
[2020-07-18] MEDS: Fish Oil/Omega-3 Fatty Acids 1 Gm Cap PO SCH (07:46)
[2020-07-18] MEDS: Acetaminophen 500 MG Tab PO SCH (07:47)
[2020-07-18] MEDS: Simvastatin 20 MG Tab PO SCH (07:49)
[2020-07-18] MEDS: cloNIDine 0.1 MG Tab PO SCH (07:52)
[2020-07-18] MEDS: Gabapentin 100 MG Cap PO SCH (07:52)
[2020-07-18] MEDS: Warfarin 5 MG Tab PO SCH (07:52)
[2020-07-18 07:54] VITALS: BP 163/66
[2020-07-18] MEDS ORDERED: glipiZIDE 2.5 MG Tab.ER PO SCH (08:00)
[2020-07-18] MEDS ORDERED: Tamsulosin 0.4 MG Cap.ER PO SCH (08:00)
[2020-07-18] MEDS ORDERED: [UNRECOGNIZED DRUG - OTHER] PO SCH (08:00)
[2020-07-18] MEDS ORDERED: Aspirin 81 MG Tab.EC PO SCH (08:00)
[2020-07-18] MEDS ORDERED: Calcium Carbonate/Vitamin D3 1500 MG-400 Units Tab PO SCH (08:00)
[2020-07-18] MEDS ORDERED: DOXAZOSIN MESYLATE 4 MG PO SCH (08:00)
[2020-07-18] MEDS ORDERED: Doxazosin 2 MG Tab PO SCH (08:00)
[2020-07-18] MEDS ORDERED: hydrALAZINE 25 MG Tab PO SCH (08:00)
[2020-07-18] MEDS ORDERED: VITAMIN D3 PO SCH (08:00)
[2020-07-18] MEDS ORDERED: amLODIPine 10 MG Tab PO SCH (08:00)
[2020-07-18] MEDS ORDERED: CALCIUM CITRATE PO SCH (08:00)
[2020-07-18] MEDS ORDERED: Furosemide 40 MG Tab PO SCH (08:00)
[2020-07-18] MEDS ORDERED: Omeprazole 20 MG Cap.CR PO SCH (08:00)
[2020-07-18 09:03] VITALS: PULSE 54
--- NOTE | 2020-07-18 09:56 | PCM.PN ---
- General Info Date of Service: 07/18/20 Subjective Update: Patient reports feeling much better, decreased bilateral LE edema noted. States he has returned to baseline for breathing. Lung sounds clear and equal bilaterally. Labs this morning show decreased BNP. Patient will follow up with PMD next week and return to ED for any increased or new concerning symptoms. Patient verbalized understanding and all questions were answered prior to DC. Functional Status: Reports: Pain Controlled, Tolerating Diet - Review of Systems General: Reports: No Symptoms HEENT: Reports: No Symptoms Pulmonary: Reports: No Symptoms Cardiovascular: Reports: No Symptoms, Dyspnea on Exertion Gastrointestinal: Reports: No Symptoms Genitourinary: Reports: No Symptoms Musculoskeletal: Reports: No Symptoms Skin: Reports: No Symptoms Neurological: Reports: No Symptoms Psychiatric: Reports: No Symptoms - Patient Data Vitals - Most Recent: Last Vital Signs Temp 97.8 F 07/18/20 09:01 Pulse 54 L 07/18/20 09:01 Resp 20 07/18/20 09:01 BP 163/66 H 07/18/20 09:01 Pulse Ox 94 L 07/18/20 09:01 Weight - Most Recent: 253 lb 2 oz I&O - Last 24 Hours: Intake & Output 07/17/20 07/18/20 07/18/20 22:59 06:59 14:59 Intake Total 900 Output Total 2300 200 Balance -1400 -200 Lab Results Last 24 Hours: Laboratory Results - last 24 hr 07/17/20 07/17/20 07/17/20 Range/Units 11:15 11:19 11:41 WBC 7.7 (4.0-11.0) K/uL RBC 2.94 L (4.50-6.50) M/uL Hgb 9.6 L (13.0-18.0) g/dL Hct 29.5 L (40.0-54.0) % MCV 100 H (76-96) fL MCH 32.7 H (27.0-32.0) pg MCHC 32.5 (31.0-35.0) g/dL RDW 15.2 (11.0-16.0) % Plt Count 214 D (150-400) K/uL MPV 9.0 (6.0-10.0) fL Neut % (Auto) 75.9 H (45.0-70.0) % Lymph % (Auto) 10.1 L (20.0-40.0) % [place] % (Auto) 10.4 H (3.0-10.0) % Eos % (Auto) 2.7 (1.0-5.0) % Baso % (Auto) 0.9 H (0.0-0.5) % Neut # (Auto) 5.86 (2.00-7.50) K/uL Lymph # (Auto) 0.78 L (1.50-4.00) K/uL [place] # (Auto) 0.80 (0.20-0.80) K/uL Eos # (Auto) 0.21 (0.04-0.40) K/uL Baso # (Auto) 0.07 (0.02-0.10) K/uL D-Dimer, Quantitative 668 H (0-400) ng/mL Sodium (136-145) mmol/L Potassium (3.5-5.1) mmol/L Chloride (98-107) mmol/L Carbon Dioxide (21.0-32.0) mmol/L Anion Gap (5.0-15.0) mmol/L BUN (8-26) mg/dL Creatinine (0.70-1.30) mg/dL Est Cr Clr Drug Dosing mL/min Estimated GFR (MDRD) (>60) MLS/MIN BUN/Creatinine Ratio (6-25) Glucose (74-100) mg/dL Calcium (8.5-10.1) mg/dL Total Bilirubin (0.0-1.0) mg/dL AST (15-37) U/L ALT (12-78) U/L Alkaline Phosphatase (46-116) U/L Troponin I (0.000-0.060) ng/mL B-Natriuretic Peptide (0-450) pg/mL Total Protein (6.4-8.2) g/dL Albumin (3.4-5.0) g/dL Globulin (2.2-4.2) g/dL Albumin/Globulin Ratio (0.8-2.0) SARS CoV-2 RNA Rapid ALEIDA Negative 07/17/20 07/17/20 07/18/20 Range/Units 11:50 11:55 09:10 WBC 7.3 (4.0-11.0) K/uL RBC 2.98 L (4.50-6.50) M/uL Hgb 9.8 L (13.0-18.0) g/dL Hct 29.9 L (40.0-54.0) % MCV 100 H (76-96) fL MCH 32.9 H (27.0-32.0) pg MCHC 32.8 (31.0-35.0) g/dL RDW 15.2 (11.0-16.0) % Plt Count 228 (150-400) K/uL MPV 9.2 (6.0-10.0) fL Neut % (Auto) 72.3 H (45.0-70.0) % Lymph % (Auto) 12.1 L (20.0-40.0) % [place] % (Auto) 9.5 (3.0-10.0) % Eos % (Auto) 4.7 (1.0-5.0) % Baso % (Auto) 1.4 H (0.0-0.5) % Neut # (Auto) 5.25 (2.00-7.50) K/uL Lymph # (Auto) 0.88 L (1.50-4.00) K/uL [place] # (Auto) 0.69 (0.20-0.80) K/uL Eos # (Auto) 0.34 (0.04-0.40) K/uL Baso # (Auto) 0.10 (0.02-0.10) K/uL D-Dimer, Quantitative (0-400) ng/mL Sodium 134 L (136-145) mmol/L Potassium 4.7 (3.5-5.1) mmol/L Chloride 103 (98-107) mmol/L Carbon Dioxide 21.7 D (21.0-32.0) mmol/L Anion Gap 14.0 (5.0-15.0) mmol/L BUN 33 H D (8-26) mg/dL Creatinine 1.54 H (0.70-1.30) mg/dL Est Cr Clr Drug Dosing 42.79 mL/min Estimated GFR (MDRD) 44 L (>60) MLS/MIN BUN/Creatinine Ratio 21.4 (6-25) Glucose 130 H D (74-100) mg/dL Calcium 8.8 (8.5-10.1) mg/dL Total Bilirubin 0.8 D (0.0-1.0) mg/dL AST 18 (15-37) U/L ALT 27 (12-78) U/L Alkaline Phosphatase 176 H (46-116) U/L Troponin I < 0.017 (0.000-0.060) ng/mL B-Natriuretic Peptide 2405 H D (0-450) pg/mL Total Protein 7.7 (6.4-8.2) g/dL Albumin 3.5 (3.4-5.0) g/dL Globulin 4.2 (2.2-4.2) g/dL Albumin/Globulin Ratio 0.8 (0.8-2.0) SARS CoV-2 RNA Rapid ALEIDA 07/18/20 Range/Units 09:10 WBC (4.0-11.0) K/uL RBC (4.50-6.50) M/uL Hgb (13.0-18.0) g/dL Hct (40.0-54.0) % MCV (76-96) fL MCH (27.0-32.0) pg MCHC (31.0-35.0) g/dL RDW (11.0-16.0) % Plt Count (150-400) K/uL MPV (6.0-10.0) fL Neut % (Auto) (45.0-70.0) % Lymph % (Auto) (20.0-40.0) % [place] % (Auto) (3.0-10.0) % Eos % (Auto) (1.0-5.0) % Baso % (Auto) (0.0-0.5) % Neut # (Auto) (2.00-7.50) K/uL Lymph # (Auto) (1.50-4.00) K/uL [place] # (Auto) (0.20-0.80) K/uL Eos # (Auto) (0.04-0.40) K/uL Baso # (Auto) (0.02-0.10) K/uL D-Dimer, Quantitative (0-400) ng/mL Sodium 133 L (136-145) mmol/L Potassium 4.5 (3.5-5.1) mmol/L Chloride 101 (98-107) mmol/L Carbon Dioxide 21.2 (21.0-32.0) mmol/L Anion Gap 15.3 H (5.0-15.0) mmol/L BUN 29 H (8-26) mg/dL Creatinine 1.46 H (0.70-1.30) mg/dL Est Cr Clr Drug Dosing 45.14 mL/min Estimated GFR (MDRD) 47 L (>60) MLS/MIN BUN/Creatinine Ratio 19.9 (6-25) Glucose 147 H (74-100) mg/dL Calcium 8.6 (8.5-10.1) mg/dL Total Bilirubin 0.8 (0.0-1.0) mg/dL AST 23 (15-37) U/L ALT 34 (12-78) U/L Alkaline Phosphatase 182 H (46-116) U/L Troponin I (0.000-0.060) ng/mL B-Natriuretic Peptide 1742 H D (0-450) pg/mL Total Protein 7.6 (6.4-8.2) g/dL Albumin 3.4 (3.4-5.0) g/dL Globulin 4.2 (2.2-4.2) g/dL Albumin/Globulin Ratio 0.8 (0.8-2.0) SARS CoV-2 RNA Rapid ALEIDA Med Orders - Current: Current Medications Acetaminophen (Tylenol Extra Strength) 1,000 mg PO TID [facility] Last Admin: 07/18/20 07:47 Dose: 1,000 mg Documented by: Allopurinol (Zyloprim) 300 mg PO DAILY@1999 [facility] Last Admin: 07/17/20 20:26 Dose: 300 mg Documented by: Amlodipine Besylate (Norvasc) 5 mg PO DAILY [facility] Last Admin: 07/18/20 07:50 Dose: 5 mg Documented by: Amoxicillin/Clavulanate Potassium (Augmentin 875 Mg/125 Mg) 1 tab PO BID [facility] Last Admin: 07/18/20 07:46 Dose: 1 tab Documented by: Aspirin (Halfprin) 81 mg PO DAILY [facility] Last Admin: 07/18/20 07:51 Dose: 81 mg Documented by: Calcium Carbonate (Caltrate 600+D 1500 Mg-400 Units) 1 tab PO DAILY [facility] Last Admin: 07/18/20 07:47 Dose: 1 tab Documented by: Clonidine HCl (Catapres) 0.1 mg PO Q12H [facility] Last Admin: 07/18/20 07:52 Dose: 0.1 mg Documented by: Doxazosin Mesylate (Cardura) 4 mg PO DAILY [facility] Last Admin: 07/18/20 07:48 Dose: 4 mg Documented by: Fish Oil (Fish Oil) 1 gm PO DAILY [facility] Last Admin: 07/18/20 07:46 Dose: 1 gm Documented by: Furosemide (Lasix) 60 mg PO DAILY [facility] Last Admin: 07/18/20 07:49 Dose: 60 mg Documented by: Gabapentin (Neurontin) 100 mg PO BID [facility] Last Admin: 07/18/20 07:52 Dose: 100 mg Documented by: Glipizide (Glucotrol Xl) 2.5 mg PO DAILY [facility] Last Admin: 07/18/20 07:53 Dose: 2.5 mg Documented by: Hydralazine HCl (Apresoline) 50 mg PO 0800,1500,2200 [facility] Last Admin: 07/18/20 07:48 Dose: 50 mg Documented by: Metoprolol Tartrate (Lopressor) 50 mg PO BID [facility] Last Admin: 07/17/20 20:23 Dose: 50 mg Documented by: (Irbesartan [ Irbesartan] 300 Mg)* Pt Own Med* 300 mg PO DAILY@1999 [facility] Last Admin: 07/17/20 20:20 Dose: 300 mg Documented by: Omeprazole (Omeprazole) 20 mg PO DAILY [facility] Last Admin: 07/18/20 07:53 Dose: 20 mg Documented by: Ropinirole HCl (Requip) 3 mg PO DAILY@1999 [facility] Last Admin: 07/17/20 20:21 Dose: 3 mg Documented by: Simvastatin (Zocor) 20 mg PO DAILY [facility] Last Admin: 07/18/20 07:49 Dose: 20 mg Documented by: Sodium Chloride (Saline Flush) 10 ml FLUSH ASDIRECTED PRN PRN Reason: Keep Vein Open Last Admin: 07/17/20 20:29 Dose: 10 ml Documented by: Tamsulosin HCl (Flomax) 0.4 mg PO DAILY [facility] Last Admin: 07/18/20 07:51 Dose: 0.4 mg Documented by: Warfarin Sodium (Coumadin) 5 mg PO DAILY [facility] Last Admin: 07/18/20 07:52 Dose: 5 mg Documented by: Discontinued Medications Allopurinol (Zyloprim) 300 mg PO DAILY [facility] Furosemide (Lasix) 40 mg IVPUSH NOW ONE Stop: 07/17/20 12:23 Last Admin: 07/17/20 12:31 Dose: 40 mg Documented by: Furosemide (Lasix) Confirm Administered Dose 40 mg .ROUTE .STK-MED ONE Stop: 07/17/20 12:40 Last Admin: 07/17/20 12:38 Dose: Not Given Documented by: Hydralazine HCl (Apresoline) 100 mg PO Q8H [facility] Last Admin: 07/17/20 16:18 Dose: Not Given Documented by: Hydralazine HCl (Apresoline) 50 mg PO Q8H [facility] Last Admin: 07/18/20 01:05 Dose: 50 mg Documented by: Non-Formulary Medication (Hydralazine [Apresoline]) 100 mg PO TID [facility] Last Admin: 07/17/20 16:17 Dose: Not Given Documented by: Non-Formulary Medication (Ubidecarenone [Co Q-10]) 300 mg PO DAILY [facility] Ropinirole HCl (Requip) 3 mg PO DAILY [facility] Sepsis Event Note - Evaluation Sepsis Screening Result: No Definite Risk - Focused Exam Vital Signs: Vital Signs Temp Pulse Resp BP BP Pulse Ox 07/18/20 09:01 97.8 F 54 L 20 163/66 H 94 L 07/18/20 07:52 163/66 H 07/18/20 07:50 163/66 H 07/18/20 07:48 163/66 H 07/18/20 06:53 98.2 F 58 L 20 155/69 H 95 07/18/20 05:00 65 07/18/20 01:13 98.6 F 14 146/80 H 93 L 07/18/20 01:05 140/62 07/18/20 00:00 12 94 L - Problem List & Annotations (1) CHF, Congestive heart failure SNOMED Code(s): 07551358 Code(s): I50.9 - HEART FAILURE, UNSPECIFIED Status: Acute Current Visit: Yes - Problem List Review Problem List Initiated/Reviewed/Updated: Yes - My Orders Last 24 Hours: My Active Orders 07/17/20 10:57 Sodium Chloride 0.9% [Saline Flush] 10 ml FLUSH ASDIRECTED PRN Peripheral IV Insertion Adult [OM.PC] Routine 07/17/20 12:24 Admission Status [Patient Status] [ADT] Routine 07/17/20 12:41 Patient Status [ADT] Routine Height and Weight [RC] DAILY Up ad Kendal [RC] ASDIRECTED Vital Signs [RC] Q4H 07/17/20 12:42 Intake and Output [RC] 06,18 07/17/20 13:57 CULTURE MRSA SURVEY [RM] Routine 07/17/20 14:00 Acetaminophen [Tylenol Extra Strength] 1,000 mg PO TID 07/17/20 Dinner Heart Healthy Diet [DIET] 07/17/20 20:00 Amoxicillin/Clavulanate K [Augmentin 875 MG/125 MG] 1 tab PO BID Fish Oil/[place]-3 Fatty Acids [Fish Oil] 1 gm PO DAILY Gabapentin [Neurontin] 100 mg PO BID Irbesartan [Irbesartan] 300 mg PO DAILY@1999 Metoprolol Tartrate [Lopressor] 50 mg PO BID Simvastatin [Zocor] 20 mg PO DAILY Warfarin [Coumadin] 5 mg PO DAILY allopurinoL [Zyloprim] 300 mg PO DAILY@1999 cloNIDine [Catapres] 0.1 mg PO Q12H rOPINIRole [Requip] 3 mg PO DAILY@199907/18/20 03:11 Resuscitation Status Routine 07/18/20 08:00 Aspirin [Halfprin] 81 mg PO DAILY Calcium Carbonate/Vitamin D3 [Caltrate 600+D 1500 MG-400 Units] 1 tab PO DAILY Doxazosin [Cardura] 4 mg PO DAILY Furosemide [Lasix] 60 mg PO DAILY Omeprazole 20 mg PO DAILY Tamsulosin [Flomax] 0.4 mg PO DAILY amLODIPine [Norvasc] 5 mg PO DAILY glipiZIDE [Glucotrol XL] 2.5 mg PO DAILY hydrALAZINE [Apresoline] 50 mg PO 0800,1500,2200
== END 2020-07-18 10:25 | disposition home or self-care (01) | DRG 293 ==
LOC: LB.ED 10:49 → LB.MS 12:24
PROVIDERS: ADMIT Nurse Practitioner; ATTEND Nurse Practitioner
DX: I11.0 Hypertensive heart disease with heart failure (principal); I50.9 Heart failure, unspecified; N28.9 Disorder of kidney and ureter, unspecified; H54.7 Unspecified visual loss; E78.00 Pure hypercholesterolemia, unspecified; I25.2 Old myocardial infarction; G47.30 Sleep apnea, unspecified; K21.9 Gastro-esophageal reflux disease without esophagitis; K57.90 Diverticulosis of intestine, part unspecified, without perforation or abscess without bleeding; E73.9 Lactose intolerance, unspecified; G89.29 Other chronic pain; M54.9 Dorsalgia, unspecified; M10.9 Gout, unspecified; E11.42 Type 2 diabetes mellitus with diabetic polyneuropathy; D64.9 Anemia, unspecified; Z95.1 Presence of aortocoronary bypass graft; Z86.74 Personal history of sudden cardiac arrest; Z88.1 Allergy status to other antibiotic agents; Z79.01 Long term (current) use of anticoagulants; Z79.84 Long term (current) use of oral hypoglycemic drugs; Z79.82 Long term (current) use of aspirin; Z79.899 Other long term (current) drug therapy; Z20.828 Contact with and (suspected) exposure to other viral communicable diseases
CPT/HCPCS: 36415; 71046; 80053; 83880; 84484; 85025; 85379; 93005; 99285; U0002; 96374; A9270-GY; J1940

== ENCOUNTER 2021-03-17 18:26 | Emergency (ER) | payer MEDICARE, BC ==
[2021-03-17 18:47] VITALS: BP 135/68; PULSE 93
[2021-03-17] MEDS: Potassium Chloride 20 MEQ Tab.ER PO ONE (18:59)
[2021-03-17] MEDS: Potassium Chloride 10 MEQ Tab.ER PO ONE (18:59)
[2021-03-17] MEDS: Magnesium Oxide 400 MG Tab PO ONE (19:03)
--- NOTE | 2021-03-18 11:06 | PN ---
DATE OF VISIT: 03/17/2021 HISTORY OF PRESENT ILLNESS: A 75-year-old male who comes in telling us that he had a potassium level checked this morning in the clinic here. The order came from [place] where his primary care provider is and his level was low. He was told to come in immediately for treatment. The patient does take diuretics including Bumex and metolazone. He tells me that they just increased one of them a few days ago before he came back from [place]. The patient is on K-Dur 30 mEq daily, taking it in the morning. He tells me that he has had problems with his potassium being high and low in the past. He tells me that he feels fine. He is not having any problems with irregular heartbeat, chest discomfort, breathing issues, and states that he feels great in fact. OBJECTIVE: GENERAL APPEARANCE: The patient is awake and alert, pleasant and talkative, smiley in nature. VITAL SIGNS: Reviewed. He is afebrile. Blood pressure 135/68, pulse 93, respirations 16, O2 sats 96% on room air. Looking at the heart monitor reveals a normal sinus rhythm. I do not see any abnormality with a prolonged WI interval or wide QRS. CARDIAC: Heart sounds distinct. S1, S2 present. Regular rate. I do not hear any murmurs tonight. LUNGS: Clear without rales, wheezes, or rhonchi. SKIN: Warm and dry. DIAGNOSIS: Hypokalemia. TREATMENT PLAN: We reviewed the patient's previous labs from earlier today and his potassium level was 2.8, sodium 135. I will double the patient's K-Dur giving him 30 mEq b.i.d. He was given the extra 30 MEQ in the emergency room and we also gave him magnesium 400 mg p.o. x1 dose. I advised the patient to continue taking the [place] 30 mEq twice a day, which is doubling up on his current dose. He tells me that he has a good supply of them at home. I advised the patient to contact the clinic tomorrow or the next day as long as he is feeling fine, within a day or two followup would be reasonable. If any new symptoms develop, he is to call or come in as needed. The patient is comfortable with the treatment plan and has no further questions. CRS/MODL /[id number] MTDD
== END 2021-03-17 19:11 | disposition home or self-care (01) ==
LOC: LB.ED 18:26
DX: E87.6 Hypokalemia (principal)
CPT/HCPCS: 36415; 80069; 99284; A9270

== ENCOUNTER 2021-07-13 18:51 | Emergency (ER) | payer MEDICARE, BC ==
[2021-07-13] MEDS ORDERED: HYDROmorphone 2 MG/ML SDV IM ONE (19:07)
[2021-07-13 19:18] VITALS: PULSE 103
[2021-07-13] MEDS ORDERED: HYDROmorphone 2 MG/ML SDV ONE (19:21)
[2021-07-13] MEDS ORDERED: Acetaminophen/HYDROcodone 325-5 MG Tab ONE (20:00)
--- NOTE | 2021-07-13 20:03 | EDM.PDOC ---
ED HPI GENERAL MEDICAL PROBLEM - General Chief Complaint: General Stated Complaint: radiating leg pain Time Seen by Provider: 07/13/21 18:55 - History of Present Illness INITIAL COMMENTS - FREE TEXT/NARRATIVE: Pt is here with C/O low back pain with pain going down his Left leg. This has been happening on and off for 4 months. No recent injury. He has been seeing a Chiropractor with some relief. Today he did some extra yard work and the pain flared up. He rates it at 9/10. He did take Tylenol at home without much relief. The pain goes down to his ankle today, before it was down to his knee. - Related Data Allergies Allergy/AdvReac Type Severity Reaction Status Date / Time cephalexin Allergy Anaphylactic Verified 07/17/20 11:28 Shock Home Meds: Home Meds Aspirin [Halfprin] 81 mg PO DAILY 07/10/16 [History] Calcium Citrate/Vitamin D3 [Calcium Citrate + D] 1 tab PO DAILY 07/10/16 [History] Cetirizine [ZyrTEC] 10 mg pe PO DAILY 07/10/16 [History] Doxazosin Mesylate [Cardura] 4 mg PO DAILY 07/10/16 [History] Febuxostat [Uloric] 80 mg PO DAILY 07/10/16 [History] Furosemide [Lasix] 60 mg PO DAILY 07/10/16 [History] Gabapentin [Neurontin] 100 mg PO DAILY 07/10/16 [History] Omeprazole 20 mg PO DAILY 07/10/16 [History] Sildenafil Citrate [Viagra] 25 mg PO DAILY 07/10/16 [History] Simvastatin [Zocor] 20 mg PO DAILY 07/10/16 [History] Ubidecarenone [Co Q-10] 300 mg PO DAILY 07/10/16 [History] amLODIPine Besylate [Amlodipine Besylate] 5 mg PO DAILY 07/10/16 [History] glipiZIDE [Glucotrol XL] 2.5 mg PO DAILY 07/10/16 [History] hydrALAZINE [Apresoline] 100 mg PO TID 07/10/16 [History] traMADol [Ultram] 50 mg PO TID PRN 07/10/16 [History] Acetaminophen [Tylenol Extra Strength] 1,000 mg PO TID 03/25/17 [History] Calcium Citrate/Vitamin D3 [Citracal + D Maximum Caplet] 1 tab PO DAILY 03/25/17 [History] Ferrous Sulfate [Iron] 325 mg PO DAILY 03/25/17 [History] Fish Oil/[place]-3 Fatty Acids [Fish Oil 1,000 MG] 1,000 mg PO DAILY 03/25/17 [History] Fluorometholone [Fluorometholone 0.1% Ophth Susp] 1 drop OP Q6HR PRN 03/25/17 [History] Hydrocodone/Acetaminophen [Hydrocodon-Acetaminoph 2.5-325] 5 - 325 mg PO Q6HR 03/25/17 [History] Polyethylene Glycol 3350 [MiraLAX] 17 gm PO DAILY 03/25/17 [History] Polyethylene Glycol 3350 [MiraLAX] 17 gm PO DAILY 03/25/17 [History] Valsartan 320 mg PO DAILY 03/25/17 [History] Warfarin [Coumadin] 5 mg PO DAILY 03/25/17 [History] Amoxicillin/Potassium Clav [Augmentin 875-125 Tablet] 1 each PO BID #20 tablet 06/12/18 [Rx] Bacitracin 3.5 gm OP Q6HR 10 Days #1 oint...g. 06/12/18 [Rx] Irbesartan 300 mg PO DAILY 07/17/20 [History] Metoprolol Tartrate 50 mg PO BID 07/17/20 [History] Tamsulosin [Tamsulosin 24 Hr] 0.4 mg PO DAILY 07/17/20 [History] allopurinoL [Zyloprim] 300 mg PO DAILY 07/17/20 [History] cloNIDine [Catapres] 0.1 mg PO Q12HR 07/17/20 [History] rOPINIRole [Requip] 3 mg PO DAILY 07/17/20 [History] Past Medical History HEENT History: Reports: Impaired Vision Cardiovascular History: Reports: Heart Failure, High Cholesterol, Hypertension, [place], Prior Cardiac Arrest, Other (See Below) Other Cardiovascular History: hyperkalemia Respiratory History: Reports: Sleep Apnea Gastrointestinal History: Reports: Diverticulosis, GERD, Other (See Below) Other Gastrointestinal History: lactose intolerance Genitourinary History: Reports: Renal Disease, Other (See Below) Other Genitourinary History: Blood work has been high and has hx diabetes Musculoskeletal History: Reports: Back Pain, Chronic, Gout Neurological History: Reports: Neuropathy, Diabetic, Neuropathy, Peripheral, Other (See Below) Other Neuro History: paresthesia Endocrine/Metabolic History: Reports: Diabetes, Type II Hematologic History: Reports: Anemia Other Hematologic History: antiphosholipic , prothombin gene mutation, antibody syndrome, cannot take ibuprophin Dermatologic History: Reports: Other (See Below) Other Dermatologic History: current rash on feet that travels up legs to thighs and scrotum - Infectious Disease History Infectious Disease History: Reports: Chicken Pox - Past Surgical History Cardiovascular Surgical History: Reports: None, Coronary Artery Bypass, Percutaneous Transluminal Angioplasty Other Cardiovascular Surgeries/Procedures: 12/2015 ultrasound, 12/2016 cardiac catheterization GI Surgical History: Reports: Colonoscopy Male Surgical History: Reports: None Musculoskeletal Surgical History: Reports: Other (See Below) Other Musculoskeletal Surgeries/Procedures:: Lumbar canal stenosis,gout Social & Family History - Family History Family Medical History: No Pertinent Family History - Tobacco Use Tobacco Use Status *Q: Never Tobacco User - Caffeine Use Caffeine Use: Reports: Coffee ED ROS GENERAL - Review of Systems Review Of Systems: Comprehensive ROS is negative, except as noted in HPI. Musculoskeletal: Reports: Back Pain (involving the lo back.), Leg Pain (down the left leg to his ankle.) ED EXAM, GENERAL - Physical Exam Exam: See Below General Appearance: Mild Distress (due to his back pain.) Extremities: Other (He has pain with light palpation in the mid lower back radiating around the hip and down his leg. Straight leg raise is positive just lifting his foot off the bed a few inches.) Course - Vital Signs Last Recorded V/S: Last Vital Signs Temp 97.2 F 07/13/21 19:16 Pulse 103 H 07/13/21 19:16 Resp 16 07/13/21 19:16 BP 144/104 H 07/13/21 19:16 Pulse Ox 98 07/13/21 19:16 - Orders/Labs/Meds Orders: Active Orders 24 hr Category Date Time Status Lumbar Spine 2 or 3V [CR] Stat Exams 07/13/21 19:07 Ordered Meds: Medications Discontinued Medications Generic Name Dose Route Start Last Admin Trade Name Freq PRN Reason Stop Dose Admin Hydromorphone HCl 1 mg 07/13/21 19:07 07/13/21 19:10 Hydromorphone 2 Mg/Ml Sdv IM 07/13/21 19:08 1 mg ONETIME ONE Administration Hydromorphone HCl Confirm 07/13/21 19:21 Hydromorphone 2 Mg/Ml Sdv Administered 07/13/21 19:22 Dose 2 mg .ROUTE .STK-MED ONE - Radiology Interpretation Free Text/Narrative:: L spine x-rays show arthritic changes including spur like formations on the anterior vertebrae. No acute changes noted. - Re-Assessments/Exams Free Text/Narrative Re-Assessment/Exam: 07/13/21 20:03 Dilaudid 1 mg IM was given which brought his pain down to 4-5/10. He tells me that it's much better. Departure - Departure Time of Disposition: 19:50 Disposition: Home, Self-Care 01 Condition: Good Clinical Impression: Low back pain potentially associated with radiculopathy - Discharge Information *PRESCRIPTION DRUG MONITORING PROGRAM REVIEWED*: Yes *COPY OF PRESCRIPTION DRUG MONITORING REPORT IN PATIENT PAUL: Yes Referrals: PCP,None [Primary Care Provider] - Additional Instructions: Use [place] 1/2 to 1 tab q 6 hours as needed. Increase Neurontin to 100 mg up to three times a day. Light duty activity as tolerated. Ice for 2 days, then heat to low back for comfort. Follow up with PCP in a few days for re check. Sepsis Event Note (ED) - Focused Exam Vital Signs: Vital Signs Temp Pulse Resp BP Pulse Ox 07/13/21 19:16 97.2 F 103 H 16 144/104 H 98 - My Orders Last 24 Hours: My Active Orders 07/13/21 19:07 Lumbar Spine 2 or 3V [CR] Stat - Assessment/Plan Last 24 Hours: My Active Orders 07/13/21 19:07 Lumbar Spine 2 or 3V [CR] Stat
[2021-07-14 07:47] VITALS: BP 147/98
--- NOTE | 2021-07-14 08:06 | CR ---
Date of Service: 07/13/21 Clinical Data: Low back pain that radiates down left leg. LUMBAR SPINE: No priors. There is diffuse osteopenia. There is slight anterior wedging of the T11 and T12 vertebrae. These are probably chronic. There is also mild compression deformity of the inferior endplate of the L5, probably chronic. There is mild left convexity rotoscoliosis of the midlumbar spine. There are disk margin spurs throughout the lower thoracic and lumbar spine with disk space narrowing diffusely. There is facet joint hypertrophy throughout the lumbar spine. No focal lytic or blastic bone lesions. There are degenerative changes involving the SI joints. There is calcification of the abdominal aorta. If the patient's symptoms persist, an MRI exam should be considered. [id number] [facility]
== END 2021-07-13 20:20 | disposition home or self-care (01) ==
LOC: LB.ED 18:51
DX: M54.16 Radiculopathy, lumbar region (principal); I11.0 Hypertensive heart disease with heart failure; I50.9 Heart failure, unspecified; E78.00 Pure hypercholesterolemia, unspecified; I25.2 Old myocardial infarction; K21.9 Gastro-esophageal reflux disease without esophagitis; M10.9 Gout, unspecified; E11.42 Type 2 diabetes mellitus with diabetic polyneuropathy; D64.9 Anemia, unspecified; Z88.1 Allergy status to other antibiotic agents; Z79.82 Long term (current) use of aspirin; Z79.01 Long term (current) use of anticoagulants; Z79.84 Long term (current) use of oral hypoglycemic drugs; Z79.899 Other long term (current) drug therapy
CPT/HCPCS: 72100; 96372; 99283; A9270; J1170

== ENCOUNTER 2022-04-05 09:20 | Emergency (ER) | payer MEDICARE, BC ==
[2022-04-05 10:18] LABS: TROPONIN I HIGH SENSITIVITY 18.1 pg/ml (<=60.4)
[2022-04-05 15:51] VITALS: BP 171/95; PULSE 78
[2022-04-05] MEDS ORDERED: Bumetanide 1 MG Tab PO ONE (16:04)
[2022-04-05] MEDS ORDERED: Potassium Chloride 20 MEQ Tab.ER PO ONE (16:05)
== END 2022-04-05 16:40 | disposition home or self-care (01) ==
LOC: LB.ED 09:20
DX: J98.8 Other specified respiratory disorders (principal); R79.89 Other specified abnormal findings of blood chemistry; I11.0 Hypertensive heart disease with heart failure; I50.9 Heart failure, unspecified; E78.00 Pure hypercholesterolemia, unspecified; I25.2 Old myocardial infarction; K21.9 Gastro-esophageal reflux disease without esophagitis; E11.42 Type 2 diabetes mellitus with diabetic polyneuropathy; Z95.1 Presence of aortocoronary bypass graft; Z88.1 Allergy status to other antibiotic agents; Z79.82 Long term (current) use of aspirin; Z79.899 Other long term (current) drug therapy; Z79.01 Long term (current) use of anticoagulants; Z20.822 Contact with and (suspected) exposure to COVID-19
CPT/HCPCS: 36415; 71045; 71260; 80048; 84484; 85025; 85379; 85610; 87804; 93005; 93010; 99283; 99285; A9270; U0002

== ENCOUNTER 2022-04-18 14:00 | Emergency (ER) | payer MEDICARE, BC ==
[2022-04-18 14:12] VITALS: PULSE 98
== END 2022-04-18 14:10 | disposition home or self-care (01) ==
LOC: LB.ED 14:00
DX: H81.10 Benign paroxysmal vertigo, unspecified ear (principal); E11.40 Type 2 diabetes mellitus with diabetic neuropathy, unspecified; M10.9 Gout, unspecified; I13.0 Hypertensive heart and chronic kidney disease with heart failure and stage 1 through stage 4 chronic kidney disease, or unspecified chronic kidney disease; N18.9 Chronic kidney disease, unspecified; I50.9 Heart failure, unspecified; K21.9 Gastro-esophageal reflux disease without esophagitis; Z95.1 Presence of aortocoronary bypass graft; Z79.01 Long term (current) use of anticoagulants; Z79.899 Other long term (current) drug therapy; Z79.82 Long term (current) use of aspirin; Z88.1 Allergy status to other antibiotic agents; Z20.822 Contact with and (suspected) exposure to COVID-19
CPT/HCPCS: 36415; 80053; 81003; 85025; 93005; 99284; U0002; 99283

== ENCOUNTER 2022-05-09 09:32 | Emergency (ER) | payer MEDICARE, BC ==
[2022-05-09 11:13] VITALS: BP 117/77; PULSE 85
== END 2022-05-09 14:05 | disposition home or self-care (01) ==
LOC: LB.ED 09:32
DX: R05.9 Cough, unspecified (principal); R19.7 Diarrhea, unspecified; M79.10 Myalgia, unspecified site; E87.5 Hyperkalemia; E11.22 Type 2 diabetes mellitus with diabetic chronic kidney disease; E11.40 Type 2 diabetes mellitus with diabetic neuropathy, unspecified; I13.0 Hypertensive heart and chronic kidney disease with heart failure and stage 1 through stage 4 chronic kidney disease, or unspecified chronic kidney disease; N18.30 Chronic kidney disease, stage 3 unspecified; I50.9 Heart failure, unspecified; I25.2 Old myocardial infarction; Z88.1 Allergy status to other antibiotic agents; Z79.01 Long term (current) use of anticoagulants; Z20.822 Contact with and (suspected) exposure to COVID-19
CPT/HCPCS: 36415; 71045; 80048; 81001; 85025; 87804; 99283; A0425; A0429; U0002

== ENCOUNTER 2022-05-29 04:46 | Emergency (ER) | payer MEDICARE, BC ==
[2022-05-29] MEDS ORDERED: Magnesium Citrate Solution 296 ML Bottle PO ONE (06:19)
[2022-05-29] MEDS ORDERED: Glycerin Adult 2 GM Supp RECTAL ONE (06:19)
[2022-05-29] MEDS ORDERED: Magnesium Hydroxide 400 MG/5 ML Susp 30 ML Cup ONE (08:01)
[2022-05-29] MEDS ORDERED: Magnesium Hydroxide 400 MG/5 ML Susp 30 ML Cup PO ONE ×2 (08:12→09:59)
[2022-05-29 12:19] VITALS: BP 128/77; PULSE 62
[2022-05-29] MEDS ORDERED: Sodium Chloride 0.9% 10 ML Syringe FLUSH PRN (12:33)
[2022-05-29] MEDS ORDERED: Sodium Chloride 0.9% 1,000 ML IV SCH (12:45)
[2022-05-29] MEDS ORDERED: Polyethylene Glycol 3350 Powder 17 GM Packet ONE ×2 (16:55→17:12)
== END 2022-05-29 17:20 | disposition home or self-care (01) ==
LOC: LB.ED 04:46
DX: K59.03 Drug induced constipation (principal); I11.0 Hypertensive heart disease with heart failure; I50.9 Heart failure, unspecified; J44.9 Chronic obstructive pulmonary disease, unspecified; I25.2 Old myocardial infarction; Z88.1 Allergy status to other antibiotic agents; Z79.899 Other long term (current) drug therapy; Z79.82 Long term (current) use of aspirin; Z79.01 Long term (current) use of anticoagulants
CPT/HCPCS: 74019; 99283; A9270; J3490; J7030

== ENCOUNTER 2022-06-26 10:41 | Emergency (ER) | payer MEDICARE, BC ==
[2022-06-26 11:33] LABS: ESTIMATED GFR 51 mL/min (>60)
[2022-06-26 12:43] VITALS: BP 144/69; PULSE 76
== END 2022-06-26 13:25 | disposition home or self-care (01) ==
LOC: LB.ED 10:41
DX: R53.1 Weakness (principal); I11.0 Hypertensive heart disease with heart failure; I50.9 Heart failure, unspecified; D64.9 Anemia, unspecified; R79.89 Other specified abnormal findings of blood chemistry; D72.829 Elevated white blood cell count, unspecified; E78.00 Pure hypercholesterolemia, unspecified; J44.9 Chronic obstructive pulmonary disease, unspecified; K21.9 Gastro-esophageal reflux disease without esophagitis; E11.9 Type 2 diabetes mellitus without complications; M10.9 Gout, unspecified; I25.2 Old myocardial infarction; Z88.1 Allergy status to other antibiotic agents; Z79.82 Long term (current) use of aspirin; Z79.01 Long term (current) use of anticoagulants; Z79.899 Other long term (current) drug therapy; Z20.822 Contact with and (suspected) exposure to COVID-19
CPT/HCPCS: 36415; 71045; 80053; 81001; 83880; 85025; 99285; U0002; 99283

== ENCOUNTER 2022-07-01 18:21 | Emergency (ER) | payer MEDICARE, BC ==
[2022-07-01] MEDS ORDERED: Potassium Chloride 40 MEQ/20 ML SDV IV SCH (19:30)
[2022-07-01] MEDS: Potassium Chloride Riders 10 MEQ in Premix Bag 1 BAG IV ONE ×2 (19:31→20:35)
[2022-07-01] MEDS ORDERED: Potassium Chloride Riders 50 ML ONE (20:35)
[2022-07-01 21:37] VITALS: BP 126/63; PULSE 83
== END 2022-07-01 21:50 | disposition home or self-care (01) ==
LOC: LB.ED 18:21
DX: E87.6 Hypokalemia (principal); I11.0 Hypertensive heart disease with heart failure; I50.9 Heart failure, unspecified; J44.9 Chronic obstructive pulmonary disease, unspecified; E11.9 Type 2 diabetes mellitus without complications; Z88.1 Allergy status to other antibiotic agents; Z79.899 Other long term (current) drug therapy; Z79.82 Long term (current) use of aspirin; Z79.01 Long term (current) use of anticoagulants
CPT/HCPCS: 80048; 82607; 82668; 82728; 82746; 83540; 83550; 85025; 96365; 96366; 99284-25; J3480